=== PATIENT | male | born 1955 | race Caucasian/White ===

== ENCOUNTER 2021-01-26 13:11 | Outpatient (REF) | payer BC, SELFPAY ==
--- NOTE | ~2021-01-26 | CT_ITS ---
EXAMINATION: CT CHEST SCREENING CLINICAL INFORMATION: Smoker. 50 years smoking. COMPARISON: None. TECHNIQUE: Multidetector volumetric CT imaging of the chest is performed without contrast using low dose technique. Additional 2D coronal and sagittal reformatted images and axial 3D maximum intensity projection (MIP) images are generated on the CT workstation. This CT examination was performed using dose optimization techniques as appropriate, variously including the following: *Automated exposure control *Adjustment of mA and/or kV according to patient size (this includes techniques or standardized protocols for targeted exams where dose is matched to indication/reason for exam; i.e. extremities or head) *Use of iterative reconstruction technique DLP: 65 mGy-cm FINDINGS: LUNGS: The lungs are well expanded and clear of acute process. There is no pulmonary nodule, mass or ground-glass density. MEDIASTINUM: The thyroid lobes are symmetrical and normal. Central trachea and the bronchi widely patent. There are small shotty mediastinal lymph nodes with a pretracheal lymph node measuring 8 mm in short axis. There is trace coronary artery calcifications. No pericardial effusion seen. PLEURA: There is no pleural effusion. No pleural mass or thickening. AXILLA: No abnormal axillary lymph nodes seen. The chest wall is unremarkable. UPPER ABDOMEN: Unremarkable. OSSEOUS STRUCTURES: No lytic or sclerotic process seen. There is moderate ventral spondylosis mid dorsal spine. CT/CT lung screening IMPRESSION: Unremarkable CT chest exam. ASSESSMENT: Lung-RADS category 1: Negative RECOMMENDATION: Low-dose annual CT chest.
== END 2021-01-26 13:12 | disposition home or self-care (01) ==
LOC: HO.CT 13:11
PROVIDERS: PCP Internal Medicine Geriatric Medicine; Visit Provider Physician Assistant Medical
DX: F17.210 Nicotine dependence, cigarettes, uncomplicated (principal)
CPT/HCPCS: 71271; G0296

== ENCOUNTER 2022-10-10 11:03 | Outpatient (REF) | payer MEDICARE, SELFPAY ==
--- NOTE | ~2022-10-10 | CT_ITS ---
EXAMINATION: LUNG CANCER SCREENING CT CHEST WITHOUT CONTRAST CLINICAL INFORMATION: Current smoker with 50 pack year history COMPARISON: 01/26/2021 TECHNIQUE: Multidetector volumetric CT imaging of the chest was obtained noncontrast using low dose screening CT technique. Axial thin section 0.625 mm reformations in soft tissue and lung windows were obtained. Sagittal and coronal reformations were obtained. Axial MIP images were also created and reviewed. This CT examination was performed using dose optimization techniques as appropriate, variously including the following: *Automated exposure control *Adjustment of mA and/or kV according to patient size (this includes techniques or standardized protocols for targeted exams where dose is matched to indication/reason for exam; i.e. extremities or head) *Use of iterative reconstruction technique TOTAL EXAM DLP: 62.55 mGy-cm FINDINGS: PULMONARY NODULES (see ruelas images): No suspicious pulmonary nodules. LUNGS / PLEURA: Minimal emphysema. Diffuse mild bronchial wall thickening and bronchiectasis. There are a few scattered endobronchial secretions in the mainstem bronchi. There are vague patchy groundglass opacities in the right middle lobe, medial basal segment of the right lower lobe and to a lesser extent in the perihilar right upper lobe. No pleural effusion or pneumothorax. MEDIASTINUM / GAYLE: Heart normal in size without pericardial effusion. Great vessels normal caliber. No lymphadenopathy. Coronary calcifications present. Imaged thyroid gland unremarkable. CHEST WALL / AXILLA: Unremarkable. UPPER ABDOMEN: Included portions grossly unremarkable allowing for limitations in technique. OSSEOUS STRUCTURES: No acute or suspicious osseous abnormalities. CT/CT lung screening IMPRESSION: * No evidence of pulmonary malignancy. * Minimal emphysema and chronic airways disease. * Minimal patchy groundglass opacities in the right lung as described likely reflecting a mild bronchiolitis, infectious versus inflammatory. ASSESSMENT: Lung RADS category: 2S. Benign appearance or behavior. Nodules with a very low likelihood of becoming a clinically active cancer due to size or lack of growth. Continue annual screening with low-dose CT in 12 months. Probability of malignancy less than 1%. Clinically significant or potentially clinically significant findings (non lung cancer). Management as appropriate to the specific finding. RECOMMENDATION: Follow up low dose CT chest in 1 year.
== END 2022-10-10 11:04 | disposition home or self-care (01) ==
LOC: HO.CT 11:03
PROVIDERS: PCP Internal Medicine Geriatric Medicine; Visit Provider Physician Assistant Medical
DX: Z12.2 Encounter for screening for malignant neoplasm of respiratory organs (principal); F17.210 Nicotine dependence, cigarettes, uncomplicated
CPT/HCPCS: 71271

== ENCOUNTER 2022-12-04 11:38 | Outpatient (REF) | payer MEDICARE, SELFPAY ==
[2022-12-04 14:34] LABS: Prostate Specific Antigen 0.25 ng/mL (<0.05-4.0)
== END 2022-12-04 11:39 | disposition home or self-care (01) ==
LOC: HO.HHCL 11:38
PROVIDERS: Visit Provider Internal Medicine Geriatric Medicine
DX: Z12.5 Encounter for screening for malignant neoplasm of prostate (principal)
CPT/HCPCS: 36415; 84153

== ENCOUNTER 2022-12-13 13:54 | Outpatient (REF) | payer MEDICARE, SELFPAY ==
--- NOTE | ~2022-12-13 | XR_ITS ---
Indication: Chronic pain EXAMINATION: Bilateral hips. Comparison is made to previous exam dated 10/08/2018. 2 views of the right hip demonstrate once again sclerotic change involving the femoral head. Overall appearances similar to previous. The femoral head contour remains smooth. Vascular calcifications are noted. The right SI joint is patent. Some loss of joint space central and inferior is noted. 2 views of the left hip again demonstrate areas of patchy sclerosis involving the femoral head. The femoral head contour however remains smooth. Once again vascular calcifications are seen. XR/XR hip RT min 2V IMPRESSION: Once again mixed sclerotic lucent regions in the femoral heads bilaterally raises the question of avascular necrosis. The femoral head contours however remain smooth. Findings can be further assessed with MRI
--- NOTE | ~2022-12-13 | XR_ITS ---
Indication: Chronic pain EXAMINATION: Bilateral hips. Comparison is made to previous exam dated 10/08/2018. 2 views of the right hip demonstrate once again sclerotic change involving the femoral head. Overall appearances similar to previous. The femoral head contour remains smooth. Vascular calcifications are noted. The right SI joint is patent. Some loss of joint space central and inferior is noted. 2 views of the left hip again demonstrate areas of patchy sclerosis involving the femoral head. The femoral head contour however remains smooth. Once again vascular calcifications are seen. XR/XR hip LT min 2V IMPRESSION: Once again mixed sclerotic lucent regions in the femoral heads bilaterally raises the question of avascular necrosis. The femoral head contours however remain smooth. Findings can be further assessed with MRI
== END 2022-12-13 13:55 | disposition home or self-care (01) ==
LOC: HO.HHCX 13:54
PROVIDERS: Visit Provider Internal Medicine Geriatric Medicine
DX: M25.551 Pain in right hip (principal); M25.552 Pain in left hip; G89.29 Other chronic pain
CPT/HCPCS: 73502

== ENCOUNTER 2023-06-12 10:50 | Outpatient (REF) | payer MEDICARE, SELFPAY ==
[2023-06-12 13:14] LABS: MANUAL DIFF FLAG NO
[2023-06-12 13:18] LABS: Basophils Absolute Auto 0.1 X10*3/uL (0.0-0.2); Basophils Percent Auto 0.8 % (0-2); Eosinophils Absolute Auto 0.2 X10*3/uL (0.0-0.4); Eosinophils Percent Auto 1.9 % (0-4); Hematocrit 46.1 % (42.0-52.0); Hemoglobin 15.3 g/dl (14.0-18.0); Imm Gran Abs Auto 0.03 X10*3/uL (0.00-0.03); Imm Gran Pct Auto 0.3 % (0.0-0.4); Lymphocytes Absolute Auto 4.6 X10*3/uL (1.2-4.9); Lymphocytes Percent Auto 43.9 % (20-40); Mean Corpuscular HGB Conc 33.2 g/dl (31.0-36.0); Mean Corpuscular Hemoglobin 30.2 pg (27.0-33.0); Mean Corpuscular Volume 90.9 fL (80.0-98.0); Mean Platelet Volume 9.2 fL (9.4-12.4); Monocytes Absolute Auto 0.6 X10*3/uL (0.1-1.2); Neutrophils Absolute Auto 4.9 x10*3/uL (2.0-8.3); Neutrophils Percent Auto 47.1 % (45-73); Platelet Count 315 X10*3/uL (160-400); Red Blood Count 5.07 X10*6/uL (4.60-5.80); Red Cell Distribution Width 14.6 % (11.0-16.0); White Blood Count 10.4 X10*3/uL (4.8-10.8)
[2023-06-12 13:42] LABS: Alanine Aminotransferase 21 U/L (0-40); Albumin Level 4.4 g/dL (3.5-5.0); Alkaline Phosphatase 97 U/L (39-117); Anion Gap 13 (12-20); Aspartate Amino Transferase 21 U/L (5-37); Bilirubin Total 0.4 mg/dL (0.0-1.0); Blood Urea Nitrogen 11 mg/dL (9-16); Calcium 9.3 mg/dL (8.4-10.2); Carbon Dioxide 24 mmol/L (22-29); Chloride 105 mmol/L (96-108); Cholesterol 183 mg/dL (<200); Estimated Glomerular Filt Rate > 60; Glucose Random 64 mg/dL (60-115); HDL Cholesterol 35 mg/dL (>40); LDL Cholesterol Calculated 76 mg/dL (<100); Sodium 138 mmol/L (135-145); Total Protein 7.2 g/dL (6.5-8.0); Triglycerides 361 mg/dL (<150)
== END 2023-06-12 10:51 | disposition home or self-care (01) ==
LOC: HO.HHCL 10:50
PROVIDERS: Visit Provider Internal Medicine Geriatric Medicine
DX: I10 Essential (primary) hypertension (principal); E78.00 Pure hypercholesterolemia, unspecified; M25.511 Pain in right shoulder; G89.29 Other chronic pain; Z72.0 Tobacco use; Z98.890 Other specified postprocedural states
CPT/HCPCS: 36415; 80053; 80061; 85025

== ENCOUNTER 2023-06-25 09:53 | Outpatient (REF) | payer MEDICARE, SELFPAY ==
--- NOTE | ~2023-06-25 | XR_ITS ---
EXAMINATION: XR SHOULDER, RIGHT CLINICAL INFORMATION: Right shoulder pain COMPARISON: None available. TECHNIQUE: AP external rotation and axillary views of the right shoulder. FINDINGS: There is prominent keel spur extending intraconal and can cause impingement of right shoulder. There are mild changes of osteoarthritis at the greater tuberosity. Acromioclavicular joint and glenohumeral joints are preserved. Soft tissues unremarkable. XR/XR shoulder RT min 2V IMPRESSION: Prominent keel spur of the acromion
== END 2023-06-25 09:54 | disposition home or self-care (01) ==
LOC: HO.HOSX 09:53
PROVIDERS: Visit Provider Orthopaedic Surgery
DX: M25.511 Pain in right shoulder (principal); R53.1 Weakness; Z79.899 Other long term (current) drug therapy
CPT/HCPCS: 20610; 73030; 99202; J1020

== ENCOUNTER 2023-06-25 10:56 | Outpatient (AMB) | payer MEDICARE, SELFPAY ==
--- NOTE | 2023-06-25 11:11 | A.OFFVIS_ITS ---
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 The patient describes his pain as sharp in nature. He did undergo bilateral shoulder rotator cuff repair surgeries several years ago. Those surgeries were performed by another orthopedic surgeon. Patient states that he re-injured his right shoulder while lifting approximately 1 year ago. Since that time his pain and weakness have gotten worse. Has done physical therapy which aggravated his pain. He has also tried Tylenol and anti- inflammatory medicines which gave him minimal relief. The patient reports difficulty lifting his right hand above shoulder height. Allergies No Known Allergies Allergy (Verified 06/25/23 11:25) Medication List - Last Reconciled 06/25/23 by Sebastián Escobedo MD albuterol sulfate 90 mcg/actuation 2 puffs inhalation Q6H amlodipine 2.5 mg PO DAILY atorvastatin 40 mg PO DAILY benzonatate mg PO blood pressure test kit-large As directed ciprofloxacin HCl 500 mg PO BID lisinopril 40 mg PO DAILY naloxone 4 mg/actuation intranasal DIRECTED omeprazole 40 mg PO DAILY oxycodone 15 mg PO QID PRN pregabalin 150 mg PO TID sildenafil (Viagra) 50 mg PO DAILY PRN PFSH Medical History Hyperlipidemia GERD (gastroesophageal reflux disease) Hypertension Chronic back pain Personal history of nicotine dependence Surgical History History of rotator cuff surgery History of lumbar surgery Social History Alcohol intake: current Alcohol intake frequency: a few times a month Patient Tobacco Use Status: Current everyday Tobacco user Tobacco use type: Cigarette Cigarette Packs Per Day: 15 Years Smoked: 50 (onset 15, 3/4ppd x50yrs 35PYH) Physical Exam Vital Signs: BMI result Body Mass Index 29.0 Const Other: Well-nourished well-developed very friendly male awake alert and oriented x3 in no acute distress Extrem Other: Bilateral upper extremity examination shows good capillary refill, no skin lesions noted, normal sensation light touch Right shoulder examination shows decreased active and passive range of motion when compared to his left shoulder, 4+ out of 5 strength with supraspinatus positive impingement signs, tenderness over his acromioclavicular joint, no instability Office Procedures Joint Injection/Drain Joint Injection/Drain Primary Site: right shoulder Prep: site was prepped using aseptic technique Injected: 40 mg of, DepoMedrol and 1% plain lidocaine Procedure: The patient tolerated the procedure well Coding - Large joint Procedure code (CPT) selection complete Results Reviewed Results Reviewed: X-rays of the patient's right shoulder show severe acromioclavicular joint narrowing, a type 3 acromion, no acute bony abnormalities Assessment & Plan Assessment & Plan (1) Right shoulder pain: Code(s): M25.511 - Pain in right shoulder Plan Mr. Tolbert presents with right shoulder pain and weakness due to impingement syndrome, acromioclavicular joint arthritis and possible rotator cuff tearing. I had a lengthy discussion with the patient regarding the treatment options. The risks and benefits of a right shoulder cortisone injection were discussed at length with the patient. The patient wished to proceed with the injection. He tolerated the injection well. I will send the patient for an MRI of his right shoulder to further evaluate the status of his rotator cuff tendons. If he does have a full-thickness tear I will recommend surgical repair to optimize is future functional level. I will see the patient back once the MRI is completed to discuss the findings and treatment options. Feel free to call me at any time should questions regarding his orthopedic management arise. Thank you very much for asking me to see this very friendly gentleman. I spent 22 minutes in reviewing the patient's records and imaging studies, seeing the patient and documenting in the medical record. Orders: Orders AMB Joint Injection/Aspiration Today M25.511 - Pain in right shoulder XR shoulder RT min 2V Today M25.511 - Pain in right shoulder MR shoulder RT wo con Today M25.511 - Pain in right shoulder Coding Level of Care Code New Pt Level 2 (82195) Diagnoses Right shoulder pain M25.511 CPT Codes Coding - 08523 Large joint: 04862 - Large joint ([id number])
[2023-06-25 11:22] VITALS: BMI 29.0
== END 2023-06-25 11:55 | disposition home or self-care (01) ==
PROVIDERS: PCP Internal Medicine Geriatric Medicine; Visit Provider Orthopaedic Surgery
DX: M25.511 Pain in right shoulder (principal)
CPT/HCPCS: 20610; 99202

== ENCOUNTER 2024-03-03 11:04 | Outpatient (REF) | payer MEDICARE, SELFPAY ==
--- NOTE | ~2024-03-03 | CT_ITS ---
EXAMINATION: CT LOW-DOSE SCREENING CHEST WITHOUT CONTRAST CLINICAL INFORMATION: Nicotine dependence, cigarettes, uncomplicated. The patient is a current smoker with a 53 pack-year history of smoking. COMPARISON: Multiple prior CT scans of the chest, the most recent of which is dated 10/10/2022 and the most remote of which is dated 08/25/2007. TECHNIQUE: Multidetector volumetric CT imaging of the chest is performed on a Siemens SOMATOM Definition scanner without contrast using low dose technique. Additional 2D coronal and sagittal reformatted images and axial 3D maximum intensity projection (MIP) images are generated on the CT workstation. This CT examination was performed using dose optimization techniques as appropriate, variously including the following: *Automated exposure control *Adjustment of mA and/or kV according to patient size (this includes techniques or standardized protocols for targeted exams where dose is matched to indication/reason for exam; i.e. extremities or head) *Use of iterative reconstruction technique TOTAL EXAM DLP: 61 mGy-cm. CTDIvol: 1.72 mGy. FINDINGS: PULMONARY NODULES: No suspicious pulmonary nodules. LUNGS: Lungs bilaterally symmetrically expanded. There is minimal emphysema and bronchial thickening without bronchiectasis. No effusion or pneumothorax. Central airways patent. MEDIASTINUM: No mediastinal, hilar or axillary adenopathy or free fluid collection. CORONARY ARTERY CALCIFICATION: Present. THYROID GLAND: Unremarkable to the extent seen. CARDIOVASCULAR STRUCTURES: Aortic and heart size normal. No pericardial effusion. CHEST WALL/AXILLA: Unremarkable. UPPER ABDOMEN: Included portions of the solid organs in the upper abdomen unremarkable on noncontrast imaging aside from the presence of hepatic steatosis, new compared to prior. OSSEOUS STRUCTURES: No suspicious focal findings. CT/CT lung screening IMPRESSION: 1. No evidence of pulmonary malignancy. 2. Incidental note made of minimal emphysema and hepatic steatosis. ASSESSMENT: 1. Lung-RADS Category 1: Negative. There are no nodules or there are definitely benign nodules. N/A 2. Lung-RADS Category S: Negative. There are no clinically significant or potentially clinically significant findings not related to the lungs requiring urgent additional evaluation. RECOMMENDATION: Continued routine annual low-dose CT lung screening in 1 year is recommended. An order for CT CHEST LOW DOSE CANCER SCREENING ([id number]) can be placed. Electronically signed by: Beau Ulrich MD 04/21/2024 01:27 PM [facility]
== END 2024-03-03 11:05 | disposition home or self-care (01) ==
LOC: HO.CT 11:04
PROVIDERS: PCP Internal Medicine Geriatric Medicine; Visit Provider Physician Assistant Medical
DX: Z12.2 Encounter for screening for malignant neoplasm of respiratory organs (principal); F17.210 Nicotine dependence, cigarettes, uncomplicated
CPT/HCPCS: 71271

== ENCOUNTER 2024-11-15 11:43 | Outpatient (REF) | payer MEDICARE, SELFPAY ==
--- OUTSIDE RECORDS SUMMARY | 2024-11-15 12:36 | XMS_ITS | Clinical Summary ---
Author Organization [facility] Address [address] [place] [address] Care Team Providers Care Auto Driver Name Role Phone Name, Chet VALDEZ Primary Care Provider [phone] Social History Tobacco Use Types Packs/Day Years Used Date Smoking Tobacco: Never Assessed Sex and Gender Information Value Date Recorded Sex Assigned at Not on file Gender Identity Not on file Sexual Orientation Not on file Plan of Treatment Health Maintenance Due Date Last Done Comments Hepatitis C Screening 1955 COVID-19 Vaccine (#1) 03/17/1957 Depression Screening 1968 Preventative Health Evaluation 1974 DTap / Tdap / Td (1 - Tdap) 09/15/1975 Colon Cancer Screening (Colonoscopy) 2001 Shingrix-Zoster Vaccine (1 of 2) 2006 Fall Risk Assessment 2021 Pneumococcal Vaccine (1 of 1 - PCV) 2021 Influenza Vaccine (#1) 2025 4, 03/31/2012, 02/19/2011, Additional history exists RSV Adult > 60+ Yrs or (1 - 1-dose 75+ series) 09/15/2031 Hepatitis B Vaccines Aged Out No long er eligible based on patient's age to complete this topic RSV Ped < 20 months Aged Out No longe r eligible based on patient's age to complete this topic Care Teams Auto Driver Relationship Specialty Start Date End Date Name, MD Chet [address] [facility] [address] [place] [id number] PCP - General Internal Medicine 07/30/18
--- OUTSIDE RECORDS SUMMARY | 2024-11-15 12:36 | XMS_ITS | Encounter Summary ---
Author Organization [facility] Address [address] [place] [address] [address] [place] [address] Care Team Providers Care Splicer Machine Operator Name Role Phone Name, Chet VALDEZ Primary Care Provider [phone] Reason for Visit * Reason Onset Date Comments Nurse Triage 11/10/2024 Encounter Details Date Type Department Care Team (Late st Contact Info) Description 11/10/2024 Telephone [facility] [address], [place] [phone] Name, MD Chet [address] [place], [place] [phone] Nurse Triage Social History Tobacco Use Types Packs/Day Years Used Date Smoking Tobacco: Every Day Cigarettes 1 53.5 Started: 05/12/1971 Passive Smoke Exposure: Current Smokeless Tobacco: Never Alcohol Use Standard Drinks/Week Comments Yes 2 (1 standard drink = 0.6 oz pur e alcohol) Drinks 'rarely' Depression Answer Date Recorded Patient Health Questionnaire-9 Score 0 09/19/2023 Patient Health Questionnaire-9 Score 0 09/19/2023 Last PHQ-9: Questionnaire Data Not on file 0 09/19/2023 Housing Stability Answer Date Recorded What is your housing situation today? I have housing today, but I am worried about losing housing in the future 11/02/[address] you li ve. Do you have problems with any of the following? Pests such as bugs, ants, or mice;Inadequate heat 11/02/2024 Food Insecurity Answer Date Recorded Within the past 12 months, y ou worried that your food would run out before you got money to buy more: Never True 11/02/2024 Within the past 12 months,th e food you bought just didn't last and you didn't have enough money to get more: Never True Transportation Answer Date Recorded In the past 12 months, has l ack of transportation kept you from medical appts, meetings, work or from getting things needed for daily living? Yes, it has kept me from medical appointments or getting medications. 11/02/2024 Utilities Answer Date Recorded In the past 12 months, has t he electric, gas, oil or water company threatened to shut off services in your home? Yes 11/02/2024 Depression Answer Date Recorded Patient Health Questionnaire-2 Score 0 09/19/2023 Internet Access Answer Date Recorded Internet Access Q1 Yes 11/02/2024 Internet Access Q2 Not on file 11/02/2024 Sex and Gender Information Value Date Recorded Sex Assigned at Male 03/11/2022 10:34 AM EDT Legal Sex Male 10:34 AM EDT Gender Identity Male 03/11/2022 10:34 AM EDT Sexual Orientation Straight 03/11/2022 10 :34 AM EDT documented as of this encounter Miscellaneous Notes * Telephone Encounter - Trina Albrecht RN - 11/10/2024 10:07 AM EDT Triage call Pt reports coughing since 11/08/24. Pt last seen in [facility] 11/02/24. Pt is concerned about exposure to Covid but, is not aware of any actual exposure. Pt reports cough is dry, has some coughing spells . Neg for fever, or any increase in usual SOB with exertion. Pt is a tobacco smoker. Pt isadvised to increase liquids 6-8 glasses daily , chicken broth , decaf tea, Use 2 tsp honey for cough when needed. Hot steamy shower air for coughing alot. Humidifier if needed or available. Pt is advised to obtain OTC Covid test kit available at pharmacy and test at home in the next day or so. Pt agrees with home care advised. Pt is advised if spouse or Pt have + Covid test in the next few days ca ll back and will triage from there. Pt agrees with disposition. Protocol Used: Cough (Adult) Protocol-Based Disposition: Home Care Positive Triage Question: * Cough with no complications * All higher-acuity triage questions were negative Care Advice Discussed: * Reassurance and Education - Cough * Cough Medicines * Coughing Spells * Prevent Dehydration * Humidifier * Fever Medicines * Reasons To Call Back - Difficulty breathing - Cough lasts more than 3 weeks - Fever lasts more than 3 days - You become worse * Telephone Encounter - Kaushaljon Lolly - 11/10/2024 9:49 AM EDT Symptom: COVID-19 Exposure (No Symptoms) Outcome: Schedule a same-day appointment or talk to a nurse or provider today Reason: This is the only possible outcome for this symptom The caller accepted this outcome. Contact pt at [phone] documented in this encounter Plan of Treatment Upcoming Encounters Date Type Department Care Team (Late st Contact Info) Description 01/17/2025 11:30 AM EDT Clinical Support [facility] [address] [place] [id number] Jahaira Smalls, NEGAR documented as of this encounter Visit Diagnoses Not on filedocumented in this encounter Additional Health Concerns Assessment Noted Time PHQ-9 Depression Total Score: 0 09/19/19 24 11:32 AM EDT documented as of this encounter Care Teams Splicer Machine Operator Relationship Specialty Start Date End Date Name, MD Chet [address] [place] [address] PCP - General Family Medicine 02/09/18 documented as of this encounter
--- OUTSIDE RECORDS SUMMARY | 2024-11-15 12:36 | XMS_ITS | Clinical Summary ---
Author Organization [facility] lin Address [address] [place] [address] Care Team Providers Care Clinical Assoc Name Role Phone Pcp, Ruma Primary Care Provider [phone] Allergies Active Allergy Reactions Criticality Noted Date Comments Niacin 08/07/2022 Medications aspirin (YUE CHEWABLE ASPIRIN) 81 MG chewable tablet Take 1 tablet (81 mg total) by mouth 5 Active amLODIPine (NORVASC) 2.5 MG tablet Take 1 tablet (2.5 mg total) by mouth 5 Active albuterol sulfate (ProAir RespiClick) 90 mcg/actuation aepb Inhale 6 Active albuterol (VENTOLIN HFA) 90 mcg/actuation inhaler Inhale 2 puffs every 4 (four) hours 1 Active ferrous sulfate (FEOSOL) 325 (65 FE) MG tablet 65 mg 4 Active fenofibrate micronized (LOFIBRA) 200 MG capsule Take 1 capsule (200 mg total) by mouth 8 Active docusate sodium (COLACE) 100 MG capsule TAKE 1 CAPSULE TWICE DAILY., 11/01/14 5:00:00 5 Active cyanocobalamin (VITAMIN B-12) 1000 MCG tablet TAKE 1 TABLET DAILY DIRECTED., 09/27/14 5:00:00 5 Active buPROPion HCL, smoking deter, (ZYBAN) 150 mg Tb12 Take 150 mg by mouth 2 Active atorvastatin (LIPITOR) 40 MG tablet TAKE 1 TABLET(40 MG) BY MOUTH IN THE MORNING 5 Active blood pressure test kit-large (Red Loop Media BP Monitor) kit Use once a day 3 Active fluticasone propionate (Flonase Allergy Relief) 50 mcg/actuation nasal spray Instill into each nostril 6 Active lisinopriL (ZESTRIL) 40 MG tablet Take 1 tablet (40 mg total) by mouth 5 Active omega-3 acid ethyl esters (LOVAZA) 1 gram capsule Take 1 capsule (1 g total) by mouth 4 Active omeprazole (PriLOSEC) 40 MG capsule TAKE ONE CAPSULE BY MOUTH ONCE DAILY BEFORE A MEAL 5 Active oxyCODONE (ROXICODONE) 15 MG immediate release tablet Take 1 tablet (15 mg total) by mouth every 6 (six) hours Max Daily Amount: 60 mg 5 12/03/19 25 Active predniSONE (DELTASONE) 20 MG tablet Take by mouth 5 11/16/19 25 Active pregabalin (LYRICA) 150 MG capsule Take 1 capsule (150 mg total) by mouth 5 Active Viagra 50 mg tablet TAKE 1 TABLET BY MOUTH 1 HOUR BEFORE SEXUAL RELATIONS ONCE DAILY NEEDED. 5 Active tadalafiL (Cialis) 20 MG tablet Take 1 tablet (20 mg total) by mouth 6 Active varenicline tartrate (CHANTIX ISABELL) 0.5 mg (11)- 1 mg (42) tablet Take by mouth 4 Active benzonatate (TESSALON) 100 MG capsule Swallow whole one (100mg) capsule by mouth 3 times a day as needed.Do not break, chew, dissolve, cut or crush. 30 capsule 5 11/18/19 25 Active azithromycin (ZITHROMAX) 250 MG tablet Take 2 tablets on day 1, Take 1 tablet on Day 2-5 6 tablet 5 11/16/19 25 Active Encounters Date Type Department Care Team Description 11/10/2024 12:20 PM EDT Office Visit [facility] [place] [address] Nela Lozano NP COPD with acute exacerbation (CMS/HCC and HHS/HCC) (Primary Dx); Chronic cough; Tobacco use from Last 3 Months Social History Tobacco Use Types Packs/Day Years Used Date Smoking Tobacco: Every Day Cigarettes Passive Smoke Exposure: Current Tobacco Cessation:Ready to Q uit: No; Counseling Given: Yes PHQ-2 Answer Date Recorded PHQ-2 Score Patient declined 11/10/2024 Sex and Gender Information Value Date Recorded Sex Assigned at Not on file Legal Sex Male 11:37 AM EDT Gender Identity Not on file Sexual Orientation Not on file Last Filed Vital Signs Vital Sign Reading Time Taken Comments Blood Pressure 173/91 11/10/2024 11:50 AM EDT Pulse 66 11/10/2024 11:48 AM EDT Temperature 37.1 C (98.8 F) 11/10/2024 11:48 AM EDT Respiratory Rate 20 11/10/2024 11:48 AM EDT Oxygen Saturation 94% 11/10/2024 11:48 AM EDT Inhaled Oxygen Concentration - - Weight - - Height - - Body Mass Index - - Plan of Treatment Health Maintenance Due Date Last Done Comments Colorectal Cancer: COLONOSCO PY Screening every 10 yrs (or Modifier) 1956 Depression: Screening Annual ly using PHQ-2/9 in Adults 18 yrs or above (or HM Modifier)([facility]) 1974 Hepatitis C Virus Infection in Adolescents and Adults: Screening (or Modifier) ([facility]) 1974 SDID Screening Reminder: Ceci ually for all adults ([facility]) 1974 Colorectal Cancer Screening 45 -75 Yrs (or HM Modifier) 2001 Colorectal Cancer: FLEXIBLE SIGMOIDOSCOPY Screening every 5 yrs 2001 Colorectal Cancer: Fecal Immunochemical Test (FIT) Annually [facility] 2001 Colorectal Cancer: High-sens itivity gFOBT Screening Annually [facility] 2001 Colorectal Cancer: Stool Col oguard Screening every 3 yrs 2001 Colorectal Cancer:CT Colonog candelaria Screening every 5 yrs 2001 Abdominal Aortic Aneurysm Screening: Men Aged 65 to 75 Years Who Have Smoked (or Modifier) ([facility]) 2021 COVID-19 Vaccine Screening: Initial Series and Booster Status ([facility]) ( season) 2024 08/23/2020, 07/21/2020 Flu Vaccination: Ages 65+: Y early High Dose Recommended (or Modifier)([facility]) 12/10/2024 02/24/2023, 12/29/2019, 02/16/2019, Additional history exists Lung Cancer: Screening Ceciua lly in adults aged 50 to 80 years (or HM Modifiers)([facility]) 03/03/2025 03/03/2024 Tobacco Smoking Cessation: i n Adults excluding Women: Behavioral and Pharmacotherapy Interventions ([facility]) 11/10/2025 11/10/2024, 11/10/2024 DTaP/Tdap/Td Vaccines ([facility]) (2 - Td or Tdap) 03/19/2029 03/19/2019, 05/12/2009 Zoster/Shingles Vaccine Seri es Screening: Adults aged 18+ yrs (or HM Modifiers)([facility]) Completed 04/18/2020, 04/17/2020, 01/28/2020 RSV Vaccines Completed 03/05/2023 Pneumococcal Vaccination Scr eening: Patients 50+ yrs of age ([facility]) Completed 05/01/2023, , 01/07/2017 Medical Devices Not on file Procedures Procedure Name Priority Date/Time Associated Diagnosis Comments LUMIRADX SARS-COV-2 RAPID RESULT ANTIGEN TEST Routine 11/10/2024 11:56 AM EDT COPD with acute exacerbation ([facility]) Chronic cough from Last 3 Months Results * LumiraDX SARS-COV-2 Rapid Result Antigen Test (11/10/2024 11:56 AM EDT) LumiraDX SARS-COV-2 Rapid Result Antigen Test Negative Negative, Invalid, Not Tested, ERRONEOUS RUIZ [id number] INTERNAL CONTROLS VALID Yes--Test working appropriately RUIZ [id number] Expiration Date 03/02/2025 RUIZ [id number] Lot Number [id number] RUIZ [id number] LUMIRA TEST BRAND Lumiradx Sars-Cov-2 AG Test RUIZ [id number] Other 11/10/2024 11:5 6 AM EDT us Nela Lozano NP POINT OF CARE TEST ORDERABLES Final Result RUIZ [id number] [address] [place] [address], [place] from Last 3 [place] [address] [facility] Care Teams Clinical Assoc Relationship Specialty Start Date End Date Pcp, No PCP - General Family Medicine 11/10/24
--- OUTSIDE RECORDS SUMMARY | 2024-11-15 12:36 | XMS_ITS | Clinical Summary ---
Author Organization [facility] ity Address [address] [place] [address] Care Team Providers Care Sleeve Sewer Name Role Phone Name, Chet VALDEZ Primary Care Provider [phone] Social History Tobacco Use Types Packs/Day Years Used Date Smoking Tobacco: Never Assessed Sex and Gender Information Value Date Recorded Sex Assigned at Not on file Legal Sex Male 2:40 AM EST Gender Identity Not on file Sexual Orientation Not on file Plan of Treatment Health Maintenance Due Date Last Done Comments DTaP,Tdap,and Td Vaccines (1 - Tdap) 09/15/1975 Pneumococcal Vaccine: 50+ Years (1 of 1 - PCV) 2006 Zoster Vaccines (1 of 2) 2006 COVID-19 Vaccine ( - 2023-2 5 season) 2024 Influenza Vaccine (#1) 2025 2, 02/19/2011, 02/27/2010 RSV Immunization Adult Patients (1 - 1-dose 75+ series) 09/15/2031 HIB Vaccines Aged Out No longer eligi ble based on patient's age to complete this topic HPV Vaccines Aged Out No longer eligi ble based on patient's age to complete this topic Hepatitis A Vaccines Aged Out No long er eligible based on patient's age to complete this topic Hepatitis B Vaccines Aged Out No long er eligible based on patient's age to complete this topic IPV Vaccines Aged Out No longer eligi ble based on patient's age to complete this topic MMR Vaccines Aged Out No longer eligi ble based on patient's age to complete this topic Meningococcal ACWY Vaccine Aged Out N o longer eligible based on patient's age to complete this topic Meningococcal B Vaccine Aged Out No l onger eligible based on patient's age to complete this topic RSV Immunization Patients Under 20 months Aged Out No longer eligible b ased on patient's age to complete this topic Varicella Vaccines Aged Out No longer eligible based on patient's age to complete this topic Care Teams Sleeve Sewer Relationship Specialty Start Date End Date Name, MD Chet [address] [place] [address] PCP - General 02/27/10
[2024-11-15 15:18] LABS: Alanine Aminotransferase 39 U/L (0-40); Albumin Level 4.5 g/dL (3.5-5.0); Alkaline Phosphatase 91 U/L (39-117); Anion Gap 13 (12-20); Aspartate Amino Transferase 29 U/L (5-37); Blood Urea Nitrogen 15 mg/dL (9-16); Calcium 9.0 mg/dL (8.4-10.2); Carbon Dioxide 21 mmol/L (22-29); Chloride 107 mmol/L (96-108); Cholesterol 161 mg/dL (<200); Estimated Glomerular Filt Rate > 60; HDL Cholesterol 38 mg/dL (>40); Potassium 4.2 mmol/L (3.3-5.1); Sodium 137 mmol/L (135-145); Total Protein 6.9 g/dL (6.5-8.0); Triglycerides 288 mg/dL (<150)
== END 2024-11-15 11:44 | disposition home or self-care (01) ==
LOC: HO.HHCL 11:43
PROVIDERS: PCP Internal Medicine Geriatric Medicine; Visit Provider Internal Medicine Geriatric Medicine
DX: I10 Essential (primary) hypertension (principal)
CPT/HCPCS: 36415; 80053; 80061

== ENCOUNTER 2025-01-26 18:23 | Outpatient (REF) | payer MEDICARE, SELFPAY ==
--- OUTSIDE RECORDS SUMMARY | 2025-01-26 14:00 | XMS_ITS | Encounter Summary ---
Author Organization [employer] Address [address] [place] [address] Care Team Providers Care Sealing And Canceling Machine Operator Name Role Phone Name, Chet VALDEZ Primary Care Provider [phone] Reason for Visit * Reason Comments INJECTION PRESS OPERATOR RV Encounter Details Date Type Department Care Team (Latest Contact Info) Description 01/26/2025 2:00 PM EDT Clinical Support [address] [address] Jahaira Smalls RN Long-term current use of opiate analgesic (Primary Dx) Social History Tobacco Use Types Packs/Day Years Used Date Smoking Tobacco: Every Day Cigarettes 1 53.7 Started: 05/12/1971 Passive Smoke Exposure: Current Smokeless [...] AM EDT documented as of this encounter Progress Notes * Jahaira Smalls RN - 01/26/2025 2:00 PM EDT SUBJECTIVE: Sedrick Tolbert is a 69 y.o. year old male who presents for INJECTION PRESS OPERATOR RV Preferred language for medical information: Swedish Sedrick Tolbert does report adherence to Oxycodone 15 mg, take 1 tablet every 6 hours PRN, last refilled 12/31/2024. The patient last took Oxycodone on: 01/26/2025 Medication is: 50% % effective at alleviating pain. Pt shared stress of caring for his mother who has dementia and lives in [place] with his son and girlfriend. OBJECTIVE: CYLINDER PRESS FEEDER checked: 01/26/2025 Pill count completed for Oxycodone , count today is 5 , anticipated count should be 5, this is as expected. Vital Signs Pain Score: 9 Pain Loc: Back Pain Education: Yes Additional pain site: right hip and right leg Last PCP visit: 11/02/2024 Controlled substance agreement signed: Controlled Substance Agreement 04/15/2024 INJECTION PRESS OPERATOR Tier: 2 Current Medications[1] Smoking status: Yes, 15 cigarettes daily ETOH use: Denies Illicit substances: Denies Marijuana use: Yes , smokes at bedtime. Marijuana card: Yes , Marijuana Acquired from: his girlfriend has a friend who gets it Lab Results Component Value Date POCTHC Positive 01/26/2025 POCCOCAINEUR Positive (A) 01/26/2025 POCOPIATEUR Negative 01/26/2025 DOAUR Negative 01/26/2025 POCAMPHETAMI Negative 01/26/2025 POCBENZODIUR Negative 01/26/2025 POCBARBSCRN Negative 01/26/2025 POCMETHADOUR Negative 01/26/2025 POCBUPSCRN Negative 01/26/2025 POCTCAUR Negative 01/26/2025 POCMDMAUR Negative 01/26/2025 POCOXYCODONE Positive 01/26/2025 POCPHENCYCUR Negative 01/26/2025 PROPOXUR Negative 01/26/2025 FENTANYLURIN Negative 01/26/2025 Reviewed UTOX results. Explained to pt I would send out urine for LESLY confirmation. Pt denies usingCOC. Educated patient on dangers of using marijuana from an unknown source and advised to only use marijuana from a dispensary. ASSESSMENT: Encounter Diagnosis Name Primary? Long-term current use of opiate analgesic Yes PLAN: Information on pain group given: Previously discussed Information on acupuncture given: Previously discussed Narcan education provided: Previously discussed Narcan prescription: active Will send Oxycodone refill request to PCP and update on UTOX results. Sedrick Tolbert will continue taking medication as prescribed and follow up at the next INJECTION PRESS OPERATOR visit or sooner if needed. Sedrick Tolbert has verbalized understanding of care plan. Future Appointments Date Time Provider Department Center 02/03/2025 10:30 AM Lily Schmidt PharmD MEDICINE [facility] 02/16/2025 10:30 AM Jahaira Smalls, RN MEDICINE [facility] Jahaira Smalls, RN [1] Current Outpatient Medications: [START ON 01/28/2025] oxyCODONE (Roxicodone) 15 MG immediate release tablet, Take 1 tablet (15 mg) by mouth every 6 (six) hours for 28 days. Do not start before January 28, 2025., Disp: 112 tablet, Rfl: 0 albuterol 108 (90 Base) MCG/ACT inhaler, Inhale 2 puffs every 4 (four) hours., Disp: , Rfl: amLODIPine (Norvasc) 2.5 MG tablet, TAKE 1 TABLET BY MOUTH EVERY DAY, Disp: 90 tablet, Rfl: 1 atorvastatin (Lipitor) 40 MG tablet, TAKE 1 TABLET(40 MG) BY MOUTH IN THE MORNING, Disp: 90 tablet,Rfl: 1 Blood Pressure kit, Use once a day, Disp: 1 kit, Rfl: 0 buPROPion (Zyban) 150 MG 12 hr tablet, Take 1 tablet (150 mg) by mouth in the morning and at bedtime. Do not crush, chew, or split., Disp: 60 tablet, Rfl: 2 lisinopril 40 MG tablet, TAKE 1 TABLET BY MOUTH EVERY DAY, Disp: 90 tablet, Rfl: 1 bsmdgqhh-afcsakybef-ooqdxbabj (Neosporin) 5-400-5000 ointment, Apply topically 2 times daily., Disp: 30 g, Rfl: 0 omega-3 acid ethyl esters (Lovaza) 1 g capsule, Take 1 capsule (1 g) by mouth 2 times daily., Disp:60 capsule, Rfl: 11 omeprazole (PriLOSEC) [address] capsule, TAKE ONE CAPSULE BY MOUTH DAILY BEFORE A MEAL, Disp: 90 capsule, Rfl: 1 pregabalin (Lyrica) 150 MG capsule, TAKE 1 CAPSULE BY MOUTH THREE TIMES DAILY, Disp: 90 capsule, Rfl: 0 sildenafil (Viagra) 50 MG tablet, TAKE 1 TABLET BY MOUTH EVERY DAY 1 HOUR BEFORE SEXUAL RELATIONS NEEDED, Disp: 10 tablet, Rfl: 2 Varenicline Tartrate, Starter, (Chantix Starting Month Pelon) 0.5 MG X 11 & 1 MG X 42 tablet therapy pack, Take 0.5 mg by mouth Once daily for 3 days, THEN 0.5 mg 2 times daily for 4 days, THEN 1 mg 2 times daily for 21 days., Disp: 53 each, Rfl: 0 documented in this encounter Plan of Treatment Upcoming Encounters Date Type Department Care Team (Late st Contact Info) Description 02/03/2025 10:30 AM EDT Medication Management [address] [address] Lily Schmidt, PankajD [address] [place] [id number] 02/16/2025 10:30 AM EDT Clinical Support [address] [place] [address] Jahaira Smalls, NEGAR Scheduled Orders Name Type Priority Associated Diagnoses Orde r Schedule Drug Monitoring, Cocaine Metabolite, Quantitative, Urine Lab Routine Long-term current use of opiate analgesic Ordered: 01/26/2025 documented as of this encounter Procedures Procedure Name Priority Date/Time Associated Diagnosis Comments POCT NAVJOT-14 URINE DRUG SCREEN Routine 01/26/2025 2:08 PM EDT Long-term current use of opiate analgesic documented in this encounter Results * (ABNORMAL) POCT NAVJOT-14 Urine Drug Screen (01/26/2025 2:08 PM EDT) THC Positive Negative Cocaine Screen, Urine Positive(A) Negative Opiate Screen, Urine Negative Negative Methamphetamine Screen Urine Negative Negative Amphetamine Screen, Urine Negative Negative Benzodiazepines Screen, Urine Negative Negative Barbiturate Screen, Urine Negative Negative Methadone Screen, Urine Negative Negative Buprenophine Screen, Urine Negative Negative TCA, Urine Negative Negative MDMA Urine Negative Negative ng/mL Oxycodone Screen, Urine Positive Negative Phencyclidine (PCP), Urine Negative Negative Propoxyphene, Urine Negative Negative Fentanyl, Urine Negative Negative Urine Urine specimen obtained by clean catch procedure / Unknown 01/26/2025 2:08 PM EDT Chet Escalera MD POINT OF CARE TEST ENTER/EDIT OR DERABLES Final Result documented in this encounter Visit Diagnoses Diagnosis Long-term current use of opiate analgesic- Primary Encounter for long-term (current) use of other medications documented in this encounter Additional Health Concerns Assessment Noted Time PHQ-9 Depression Total Score: 0 09/19/19 24 11:32 AM EDT documented as of this encounter Care Teams Sealing And Canceling Machine Operator Relationship Specialty Start Date End Date Name, MD Chet [address] [place] [address] PCP - General Family Medicine 02/09/18 documented as of this encounter
--- OUTSIDE RECORDS SUMMARY | 2025-01-26 19:30 | XMS_ITS | Encounter Summary ---
Author Organization [employer] Address [address] [place] [address] [address] [place] [address] Care Team Providers Care Rotary Adjuster Name Role Phone Name, Chet VALDEZ Primary Care Provider [phone] Reason for Visit * Reason Onset Date Comments Med Refill 01/21/2025 Encounter Details Date Type Department Care Team (Late st Contact Info) Description 01/21/2025 Telephone [facility] [address] [place], [place] [phone] Name, MD Chet [address] [place], [place] [phone] Med Refill Social History Tobacco Use Types Packs/Day Years [...] encounter Miscellaneous Notes * Telephone Encounter - Jahaira Smalls RN - 01/21/2025 12:32 PM EDT Per Mo, Oxycodone last picked up 12/31/24 for a 28 day supply. Refill due 01/28/25. Will forwardto PCP on 01/26/25. * Telephone Encounter - [place] - 01/21/2025 12:27 PM EDT TC from pt requesting medication refill. Medications needing refill: oxyCODONE (Roxicodone) 15 MG immediate release tablet [facility] be sent to: [id number] [address] documented in this encounter Plan of Treatment Upcoming Encounters Date Type Department Care Team (Late st Contact Info) Description 02/03/2025 10:30 AM EDT Medication Management [facility] [address] [place] [address] Lily Schmidt, PharmD [address] [place] [address] 02/16/2025 10:30 AM EDT Clinical Support [facility] [address] [place] [address] Jahaira Smalls RN documented as of this encounter Visit Diagnoses Not on filedocumented in this encounter Additional Health Concerns Assessment Noted Time PHQ-9 Depression Total Score: 0 09/19/19 24 11:32 AM EDT documented as of this encounter Care Teams Rotary Adjuster Relationship Specialty Start Date End Date Name, MD Chet [address] [place] [address] PCP - General Family Medicine 02/09/18 documented as of this encounter
--- OUTSIDE RECORDS SUMMARY | 2025-01-26 19:30 | XMS_ITS | Encounter Summary ---
Author Organization [employer] Address [address] [facility] 7t [place] [address] Care Team Providers Care Laborer Brush Clearing Name Role Phone Name, Chet VALDEZ Primary Care Provider [phone] Encounter Details Date Type Department Care Team ([facility] st Contact Info) Description 04/21/2024 Telephone [facility] [address] [place], [place] [phone] Name, MD Chet [address] [place], [place] [phone] Social History Tobacco Use Types Packs/Day Years [...] is your housing situation today? I have lopez ferguson 09/19/[address] you li ve. Do you have problems with any of the following? None of the above 09/19/2023 Food Insecurity Answer Date Recorded Within the past 12 months, y ou worried that your food would run out before you got money to buy more: Never True 09/19/2023 Within the past 12 months,th e food you bought just didn't last and you didn't have enough money to get more: Never True 02/2024 Transportation Answer Date Recorded In the past 12 months, has l ack of transportation kept you from medical appts, meetings, work or from getting things needed for daily living? No 09/19/2023 Utilities Answer Date Recorded In the past 12 months, has t he electric, gas, oil or water company threatened to shut off services in your home? Yes 09/19/2023 Depression Answer Date Recorded Patient Health Questionnaire-2 Score 0 09/19/2023 Sex and Gender Information Value Date Recorded Sex Assigned at Male 03/11/2022 10:34 AM EDT Legal Sex Male 10:34 AM EDT Gender Identity Male 03/11/2022 10:34 AM EDT Sexual Orientation Straight 03/11/2022 10 :34 AM EDT documented as of this encounter Plan of Treatment Upcoming Encounters Date Type Department Care Team (Late st Contact Info) Description 02/03/2025 10:30 AM EDT Medication Management [address] [address] Lily Schmidt, PharmD [address] [place] [phone] 02/16/2025 10:30 AM EDT Clinical Support [address] [address] Jahaira Smalls, NEGAR documented as of this encounter Visit Diagnoses Not on filedocumented in this encounter Additional Health Concerns Assessment Noted Time PHQ-9 Depression Total Score: 0 09/19/19 24 11:32 AM EDT documented as of this encounter Care Teams Laborer Brush Clearing Relationship Specialty Start Date End Date Name, MD Chet [address] [place] [id number] PCP - General Family Medicine 02/09/18 documented as of this encounter
--- OUTSIDE RECORDS SUMMARY | 2025-01-26 19:30 | XMS_ITS | Encounter Summary ---
Author Organization [employer] Address [address] [place] [address] [address] [place] [address] Care Team Providers Care Wool Hat Forming Machine Tender Name Role Phone Name, Chet VALDEZ Primary Care Provider [phone] Reason for Visit * Reason Onset Date Comments Med Refill 01/21/2025 Encounter Details Date Type Department Care Team (Late st Contact Info) Description 01/21/2025 Refill [facility] [address] [place], [place] [phone] Name, MD Chet [address] [place] [address] Other chronic pain Social History Tobacco Use Types Packs/Day Years [...] encounter Miscellaneous Notes * Telephone Encounter - Sonali Jewell LPN - 01/21/2025 1:09 PM EDT Erisa Attorney ck on 01.21.25/last visit 11/02/24 * Telephone Encounter - [place] - 01/21/2025 12:25 PM EDT TC from pt requesting medication refill. Medications needing refill: pregabalin (Lyrica) 150 MG capsule To be sent to: [id number] [address] documented in this encounter Plan of Treatment Upcoming Encounters Date Type Department Care Team (Late st Contact Info) Description 02/03/2025 10:30 AM EDT Medication Management [facility] [address] [place], [place] [phone] Lily Schmidt, PharmD [address] [place], [place] [phone] 02/16/2025 10:30 AM EDT Clinical Support [facility] [address] [place] [address] Jahaira Smalls RN documented as of this encounter Visit Diagnoses Diagnosis Other chronic pain documented in this encounter Additional Health Concerns Assessment Noted Time PHQ-9 Depression Total Score: 0 09/19/19 24 11:32 AM EDT documented as of this encounter Care Teams Wool Hat Forming Machine Tender Relationship Specialty Start Date End Date Name, MD Chet [address] [place] [address] PCP - General Family Medicine 02/09/18 documented as of this encounter
--- OUTSIDE RECORDS SUMMARY | 2025-01-26 19:30 | XMS_ITS | Encounter Summary ---
Author Organization [employer] Address [address] [facility] 7[address] [place] [address] Care Team Providers Care Binding Nicker Name Role Phone Name, Chet VALDEZ Primary Care Provider [phone] Reason for Visit * Reason Onset Date Comments UTOX abnormal 01/26/2025 Encounter Details Date Type Department Care Team (Late st Contact Info) Description 01/26/2025 Telephone [facility] [address] [place] [address] [phone] Jahaira Smalls RN UTOX abnormal Social History Tobacco Use Types Packs/Day Years [...] Telephone Encounter - Jahaira Smalls RN - 01/26/2025 2:14 PM EDT Pt had [facility] appt today UTOX Pos LESLY, sent out for confirmation. Admits to using marijuana recently that his girlfriend got from a friend. Reviewed dangers of usingmarijuana not from dispensary. Scheduled to come in again for [facility] V 02/16/25. documented in this encounter Plan of Treatment Upcoming Encounters Date Type Department Care Team (Late st Contact Info) Description 02/03/2025 10:30 AM EDT Medication Management [address] [address] Lily Schmidt, PharmD [address] [place] [phone] 02/16/2025 10:30 AM EDT Clinical Support [facility] [address] [place] [phone] Jahaira Smalls, RN documented as of this encounter Visit Diagnoses Diagnosis Chronic pain syndrome documented in this encounter Additional Health Concerns Assessment Noted Time PHQ-9 Depression Total Score: 0 09/19/19 24 11:32 AM EDT documented as of this encounter Care Teams Binding Nicker Relationship Specialty Start Date End Date Name, MD Chet [address] [place] [address] PCP - General Family Medicine 02/09/18 documented as of this encounter
--- OUTSIDE RECORDS SUMMARY | 2025-01-26 19:30 | XMS_ITS | Encounter Summary ---
Author Organization [employer] Address [address] [facility] 7[address] [place] [address] Care Team Providers Care Senior Sales Operations Analyst Name Role Phone Name, Chet VALDEZ Primary Care Provider [phone] Reason for Visit * Reason Comments Med Refill Encounter Details Date Type Department Care Team ([facility] st Contact Info) Description 04/27/2024 Refill [facility] [address] [place], [place] [phone] Name, MD Chet [address] [place] [address] Heartburn Social History Tobacco Use Types Packs/Day Years [...] Description 02/03/2025 10:30 AM EDT Medication Management [facility] [address] [place] [phone] Lily Schmidt PharmD [address] [place] [phone] 02/16/2025 10:30 AM EDT Clinical Support [address] [phone] Jahaira Smalls, NEGAR documented as of this encounter Visit Diagnoses Diagnosis Heartburn documented in this encounter Additional Health Concerns Assessment Noted Time PHQ-9 Depression Total Score: 0 09/19/19 24 11:32 AM EDT documented as of this encounter Care Teams Senior Sales Operations Analyst Relationship Specialty Start Date End Date Name, MD Chet [address] [place] [id number] PCP - General Family Medicine 02/09/18 documented as of this encounter
--- OUTSIDE RECORDS SUMMARY | 2025-01-26 19:30 | XMS_ITS | Encounter Summary ---
Author Organization [employer] Address [address] [place] [address] 7[address] [place] [address] Care Team Providers Care Supervisor Bleach [employer] Name Role Phone Name, Chet VALDEZ Primary Care Provider Reason for Visit * Reason Comments Med Refill Encounter Details Date Type Department Care Team (Late Contact Info) Description 07/09/2022 Refill [facility] MED[facility]INE [address] [place] [address] [phone] Name, MD Chet [address] [place] [phone] Social History Tobacco Use Types Packs/Day Years Used Date Smoking Tobacco: Every Day Cigarettes 1 53.7 Started: 05/12/1970 Smokeless Tobacco: Never Alcohol Use Standard Drinks/Week Comments Yes 2 (1 standard drink = 0.6 oz pur e alcohol) Drinks 'rarely' Depression Answer Date Recorded Patient Health Questionnaire-9 Score 11 04/25/2022 Depression Answer Date Recorded Patient Health Questionnaire-2 Score 2 04/25/2022 Sex and Gender Information Value Date Recorded Sex Assigned at Male 03/11/2022 10:34 AM EDT Legal Sex Male 10:34 AM EDT Gender Identity Male 03/11/2022 10:34 AM EDT Sexual Orientation Straight 03/11/2022 10 :34 AM EDT COVID-19 Exposure Response Date Recorded In the last 10 days, have yo u been in contact with someone who was confirmed or suspected to have Coronavirus/COVID-19? No / Unsure 06/18/2022 10:02 AM EST documented as of this encounter Plan of Treatment Upcoming Encounters Date Type Department Care Team (Late Contact Info) Description 02/03/2025 10:30 AM EDT Medication Management [address] [address] Lily Schmidt, Jody [address] [place] [address] 02/16/2025 10:30 AM EDT Clinical Support [address] [address] Jahaira Smalls RN documented as of this encounter Visit Diagnoses Not on filedocumented in this encounter Additional Health Concerns Assessment Noted Time PHQ-9 Depression Total Score: 11 04/25/ 022 10:11 AM EST documented as of this encounter Care Teams Supervisor [employer]ach Plant Relationship Specialty Start Date End Date Name, MD Chet [address] [place] [phone] PCP - General Family Medicine 02/09/18 documented as of this encounter
--- OUTSIDE RECORDS SUMMARY | 2025-01-26 19:30 | XMS_ITS | Encounter Summary ---
Author Organization [employer] [facility] Address [address] [place] [address] 7[address] [place] [address] Care Team Providers Care Dining Service Worker Name Role Phone Name, Chet VALDEZ Primary Care Provider [phone] Encounter Details Date Type Department Care Team ([facility] Contact Info) Description 04/08/[address] [phone] Provider, MD Williams Social History Tobacco Use Types Packs/Day Years [...] suspected to have Coronavirus/COVID-19? No / Unsure 04/11/2022 10:24 AM EST documented as of this encounter Plan of Treatment Upcoming Encounters Date Type Department Care Team (Late st Contact Info) Description 02/03/2025 10:30 AM EDT Medication Management [address] [address] Lily Schmidt, PharmD [address] [place], [place] [phone] 02/16/2025 10:30 AM EDT Clinical Support [address] [address] Jahaira Smalls RN documented as of this encounter Visit Diagnoses Not on filedocumented in this encounter Care Teams Dining Service Worker Relationship Specialty Start Date End Date Name, MD Chet [address] [place] [address] PCP - General Family Medicine 02/09/18 documented as of this encounter
--- OUTSIDE RECORDS SUMMARY | 2025-01-26 19:30 | XMS_ITS | Clinical Summary ---
Author Organization [employer] Address [address] [facility] [address] [place] [address] Care Team Providers Care Director Compliance Name Role Phone Name, Chet VALDEZ Primary Care Provider [phone] Allergies Active Allergy Reactions Criticality Noted Date Comments Niacin 08/07/2022 Medications * This document contains information received from the source organization and may not represent a complete record from that organization. albuterol 108 (90 Base) MCG/ACT inhaler Inhale 2 puffs every 4 (four) hours. 08/18/19 21 Active buPROPion (Zyban) 150 MG 12 hr tabletIndicatio ns:Tobacco user Take 1 tablet (150 mg) by mouth in the morning and at bedtime. Do not crush, chew, or split. 60 tablet 2 04/25/20 22 Active neomycin-bacitr acin-polymyxin (Neosporin) 5-400-5000 ointmentIndicat ions:Staphyloco ccal arthritis of left elbow (CMS/HCC) Apply topically 2 times daily. 30 g 05/10/20 22 Active Blood Pressure kit Use once a day 1 kit 12/05/19 23 Active Varenicline Tartrate, Starter, (Chantix Starting Month ) 0.5 MG X 11 & 1 MG X 42 tablet therapy pack Take 0.5 mg by mouth Once daily for 3 days, THEN 0.5 mg 2 times daily for 4 days, THEN 1 mg 2 times daily for 21 days. 53 each 06/12/19 24 Active omega-3 acid ethyl esters (Lovaza) 1 g capsule Take 1 capsule (1 g) by mouth 2 times daily. 60 capsule 11 06/13/19 24 Active atorvastatin (Lipitor) 40 MG tabletIndicatio ns:Essential hypertension TAKE 1 TABLET(40 MG) BY MOUTH IN THE MORNING 90 tablet 1 08/03/19 25 Active lisinopril 40 MG tabletIndicatio ns:Essential hypertension TAKE 1 TABLET BY MOUTH EVERY DAY 90 tablet 1 10/26/19 25 Active amLODIPine (Norvasc) 2.5 MG tabletIndicatio ns:Essential hypertension TAKE 1 TABLET BY MOUTH EVERY DAY 90 tablet 1 10/28/19 25 Active omeprazole (PriLOSEC) [address] capsuleIndicati ons:Heartburn TAKE ONE CAPSULE BY MOUTH DAILY BEFORE A MEAL 90 capsule 1 11/23/19 25 Active pregabalin (Lyrica) 150 MG capsuleIndicati ons:Other chronic pain TAKE 1 CAPSULE BY MOUTH THREE TIMES DAILY 90 capsule 01/22/20 25 Active sildenafil (Viagra) 50 MG tablet TAKE 1 TABLET BY MOUTH EVERY DAY 1 HOUR BEFORE SEXUAL RELATIONS NEEDED 10 tablet 2 01/22/20 25 Active oxyCODONE (Roxicodone) 15 MG immediate release tabletIndicatio ns:Chronic pain syndrome Take 1 tablet (15 mg) by mouth every 6 (six) hours for 28 days. Do not start before January 28, 2025. 112 tablet 01/29/20 25 025 Active Viagra 50 MG tablet TAKE 1 TABLET BY MOUTH 1 HOUR BEFORE SEXUAL RELATIONS ONCE DAILY NEEDED. 10 tablet 2 11/06/19 25 025 Discontinued(Re order (will not trigger notification to Pharmacy)) oxyCODONE (Roxicodone) 15 MG immediate release tabletIndicatio ns:Chronic pain syndrome Take 1 tablet (15 mg) by mouth every 6 (six) hours for 28 days. Do not start before December 02, 2024. 112 tablet 12/03/19 25 025 Discontinued(Re order (will not trigger notification to Pharmacy)) pregabalin (Lyrica) 150 MG capsuleIndicati ons:Other chronic pain TAKE 1 CAPSULE BY MOUTH THREE TIMES DAILY 90 capsule 12/25/19 25 025 Discontinued(Re order (will not trigger notification to Pharmacy)) oxyCODONE (Roxicodone) 15 MG immediate release tabletIndicatio ns:Chronic pain syndrome Take 1 tablet (15 mg) by mouth every 6 (six) hours for 28 days. Do not start before December 31, 2024. 112 tablet 01/01/20 025 Discontinued(Re order (will not trigger notification to Pharmacy)) Viagra 50 MG tablet TAKE 1 TABLET BY MOUTH 1 HOUR BEFORE SEXUAL RELATIONS ONCE DAILY NEEDED. 10 tablet 2 01/22/20 25 025 Discontinued Active Problems Problem Noted Date Diagnosed Date Long-term current use of opiate analgesic 2024 Seborrhea 06/12/2023 06/12/2023 NSAID long-term use 06/12/2023 06/12/2023 High cholesterol 06/12/2023 Overview (06/12/2023): Continue statin and check fasting blood work Benign localized prostatic h yperplasia with lower urinary tract symptoms (LUTS) 12/04/2022 Chalazion 12/04/2022 Chronic narcotic use 12/04/2022 Claustrophobia 12/04/2022 Constipation 12/04/2022 Coronary artery calcinosis 12/04/2022 Epidermoid cyst of skin 12/04/2022 Failed back syndrome 12/04/2022 Fatty liver 12/04/2022 Hard of hearing 12/04/2022 Hiatal hernia 12/04/2022 Knee pain 12/04/2022 Lumbar disc herniation 12/04/2022 Lumbar spondylosis 12/04/2022 Neck pain 12/04/2022 Nevus of vermilion border of lower lip Nocturia 12/04/2022 Obesity (BMI 30-39.9) 12/04/2022 Pain in joint of right shoulder 12/04/2022 Rotator cuff sprain 12/04/2022 Senile hyperkeratosis 12/04/2022 Vasculitis 12/04/2022 Chronic pain 12/04/2022 Staphylococcal arthritis of left elbow Assessment & Plan (05/14/2022 3:43 PM EST): Patient to complete 2 more days of abs. May need ortho referral, refer to to [facility]. Order cbc w esr and if significantly abn, may need longer course of abs. FU w PCP or me in 3-4w Wound dressing done today by RN. Cellulitis of left elbow 05/14/2022 Assessment & Plan (05/14/2022 4:34 PM EST): Patient is here for a sick visit. Initially seen at [facility] ER on 05/02/222 after a fall that landed him on his left arm, he subsequently developed redness and swelling in the area of the injury, x-rays of his left shoulder and elbow on 05/02/2022 did not show fracture. left elbow showed Olecranon bursitis. He was given PO Keflex and Doxycicline and sent home. He was seen 2 days later on 05/04/2022 after being called for a positive Fluid cx for staph Aureus, ER physician had recommended Hospitalization but pt declined. He was then recommended to continue on the Doxy that he tells me already finished, and although he was recommended to see Ortho, it appears he was supposed to call them to schedule an appointment.He was seen here again on 05/10/[address] Arielle Hammer and she ordered an ESR that was only mildly elevated at 22 and a normal WBC. Today patient is here because despite the fact that he completed the Antibiotic course, he continues to experience severe left elbow pain, swelling and drainage. No fever, and has full ROM of his elbow Plan: Given his lack of improvement and persistent pain, redness and swelling, as well as physical exam suggestive of a large fluid collection on his elbow I have recommended pt to be seen back at the ER for repeat imaging as well as for diagnostic and therapeutic joint aspiration to rule out septic athritis. He might also benefit from a couple of days of IV Abx. Pt is agreable with plan, will bring him to [facility]. I have sent a prescription for Bactrim DS 1 tab po BID x 14 days, and I have placed a referral for [facility], since he will probably be released from the Hospital with instruction to follow up with Ortho. Follow up with PCP after that Tobacco user 04/25/2022 Erectile dysfunction 04/25/2022 Hip pain 03/26/2022 Bilateral hearing loss 09/10/2018 Chronic pain syndrome 05/13/2018 Hypertension 05/13/2018 Avascular necrosis of hip 03/24/2018 Overview (12/04/2022): 2019 X-ray showed IMPRESSION: There is patchy sclerosis involving the femoral heads bilaterally concerning for the presence of avascular necrosis that can be further assessed with MRI. Followed at [facility], recommended observation and yearly X-ray but no surgery yet Chronic low back pain 02/09/2018 Decreased hearing 02/09/2018 Heartburn 02/09/2018 Hypertriglyceridemia, essential 02/09/2018 Osteoarthritis of left hip 02/09/2018 Encounters * This document contains information received from the source organization and may not represent a complete record from that organization. Date Type Department Care Team Description 01/26/2025 2:00 PM EDT Clinical Support [facility] [place] [address] Jahaira Smalls, NEGAR Long-term current use of opiate analgesic (Primary Dx) 01/26/2025 Telephone [facility] [place] [address] Jahaira Smalls, RN UTOX abnormal 01/26/2025 Travel 01/24/2025 Refill [facility] [place] [address] Chet Escalera MD Chronic pain syndrome 01/21/2025 Refill [facility] [address] [place] [address] Chet Escalera MD 01/21/2025 Telephone [facility] [address] [place] [address] Chet Escalera MD Med Refill 01/21/2025 Telephone [facility] [address] [place] [address] Chet Escalera MD Med Refill 01/21/2025 Refill [facility] [address] [place] [address] Chet Escalera MD Other chronic pain 01/11/2025 Telephone [facility] [address] [place] [address] Chet Escalera MD Appointment Request 01/11/2025 Telephone [facility] [address] [place] [address] Chet Escalera MD Appointment Request 12/31/2024 Telephone [facility] [address] [place] [address] Katerina Moreno MA oct recalls 12/24/2024 Refill [facility] [address] [facility] [place] [address] Chet Escalera MD Chronic pain syndrome 12/24/2024 Refill [facility] [address] [facility] [place] [address] Chet Escalera MD Other chronic pain 11/29/2024 Refill [facility] [address] [place] [address] NameChet MD Chronic pain syndrome 11/20/2024 Refill [facility] [address] [place] [address] Chet Escalera MD Heartburn 11/18/2024 Refill [facility] [address] [place] [address] Arielle Hammer MD Other chronic pain 11/10/2024 Telephone [facility] [address] [place] [address] Chet Escalera MD Nurse Triage 11/05/2024 Refill [facility] [address] [place] [address] Chet Escalera MD 11/04/2024 Telephone [facility] [address] [place] [address] Chet Escalera MD Med Refill 11/04/2024 Refill [facility] [address] [place] [address] Chet Escalera MD Chronic pain syndrome 11/02/2024 1:15 PM EDT Office Visit [facility] [address] [place] [address] Chet Escalera MD Hypertension, unspecified type (Primary Dx); Tobacco dependence; Grief; Caregiver stress; Chronic bilateral low back pain with right-sided sciatica 11/02/2024 Travel 11/01/2024 Telephone [facility] [address] [place] [address] Katerina Moreno MA charrt prep 10/27/2024 Refill [facility] [address] [place] [address] Chet Escalera MD Essential hypertension from Last 3 Months Immunizations Immunization Administration Dates Next Due Influenza High-dose Quadriva lent Preservative Free 02/24/2023 Influenza Injectable Quadriv alant Preservative Free IIV4 MDCK 12/29/2019 Influenza Quadrivalent Adjuvanted 01/25/2022 Influenza injectable quadriv alent IIV4 with preservative 02/09/2018 Influenza injectable quadriv alent preservative free 02/16/2019,12/11/2016,01/12/2016,01/14 Influenza, High Dose Seasona l, Preservative Free 02/12/2024 Influenza, IIV3, injectable 02/09/2021,0 12/11/2016,01/12/2016,01/13,02/10/2014,02/09/2014,03/31/2012 ,02/19/2011,02/27/2010 Influenza, seasonal, injecta ble, preservative free 01/14/2015,03/31/2012,02/19/2011,02/27 Moderna Covid-19 Vaccine 12+ 08/23/2020,07/22/19 21 Pneumococcal Conjugate PCV 20 05/01/2023 Pneumococcal Polysaccharide PPSV23 04/25/2022, RSV Bivalent 03/05/2023 Td (adult), unspecified 05/12/2009 Tdap 03/19/2019 Zoster, Recombinant 04/18/2020,04/17/2020,2019 Social History Tobacco Use Types Packs/Day Years Used Date Smoking Tobacco: Every Day Cigarettes 1 53.7 Started: 05/12/1971 Passive Smoke Exposure: Current Smokeless Tobacco: Never Tobacco Cessation:Ready to Q uit: Not Asked; Counseling Given: Not Answered Alcohol Use Standard Drinks/Week Comments Yes 2 [...] Orientation Straight 03/11/2022 10 :34 AM EDT Last Filed Vital Signs Vital Sign Reading Time Taken Comments Blood Pressure 134/82 11/02/2024 1:36 PM EDT Pulse 82 11/02/2024 1:36 PM EDT Temperature 36.2 C (97.1 F) 09/19/2023 11:29 AM EDT Respiratory Rate 14 11/02/2024 1:36 PM EDT Oxygen Saturation 97% 11/02/2024 1:36 PM EDT Inhaled Oxygen Concentration - - Weight 87.6 kg (193 lb 3.2 oz) 11/02/2024 1:36 P M EDT Height 170.2 cm (5' 7 ) 11/02/2024 1:36 PM EDT Body Mass Index 30.26 11/02/2024 1:36 PM EDT Plan of Treatment Upcoming Encounters Date Type Department Care Team (Late st Contact Info) Description 02/03/2025 10:30 AM EDT Medication Management [facility] [address] [place] [address] Lily Schmidt, PharmD [address] [place] [address] 02/16/2025 10:30 AM EDT Clinical Support [facility] [address] [place] [address] Jahaira Smalls, RN Health Maintenance Due Date Last Done Comments CT Colonography 1955 FIT DNA/Cologuard 1955 FIT 1955 FOBT 1955 Sigmoidoscopy 1955 Hepatitis C Screening 1974 Hepatitis A Vaccines (1 of 2 - Risk 2-dose series) 09/15/1975 Hepatitis B Vaccines (1 of 3 - Risk 3-dose series) 2016 Depression Screening 09/18/2024 09/19/2023, 09/19/19 24 COVID-19 Vaccine ( season) 2025 02/12/2024, 02/24/2023, 02/22/2022, Additional history exists Influenza Vaccine (#1) 2025 , 02/24/2023, 01/25/2022, Additional history exists Lung Cancer Screening 03/03/2025 03/03/2024, 023 Alcohol/Substance Use Screening 11/02/2025 11/02/2024 SDOH Screening 11/02/2025 11/02/2024 Tobacco Screening 11/02/2025 11/02/2024 Colonoscopy 10/22/2028 10/22/2018 Colorectal Cancer Screening 10/22/2028 DTaP/Tdap/Td Vaccines (2 - Td or Tdap) 03/19/2029 03/19/2019, 05/12/2009 Lipid Panel 11/15/2029 11/15/2024, 05/2023, 08/27/2022, Additional history exists Zoster Vaccines Completed 04/18/2020, 11/2019, 01/28/2020 RSV Patients and Patients Aged 60 years or older Completed 03/05/2023 Pneumococcal Vaccine: 50+ Years Completed 05/01/2023, 04/25/2022, 01/07/2017 HIB Vaccines Aged Out No longer eligi [...] patient's age to complete this topic Meningococcal Vaccine Aged Out No aayush arely eligible based on patient's age to complete this topic RSV under 20 months Aged Out No longe r eligible based on patient's age to complete this topic Rotavirus Vaccines Aged Out No longer eligible based on patient's age to complete this topic Procedures Procedure Name Priority Date/Time Associated Diagnosis Comments POCT NAVJOT-14 URINE DRUG SCREEN Routine 01/26/2025 2:08 PM EDT Long-term current use of opiate analgesic LIPID PANEL, STANDARD Routine 11/15/2024 11:48 AM EDT Hypertension, unspecified type COMPREHENSIVE METABOLIC PANEL Routine 11/15/2024 11:48 AM EDT Hypertension, unspecified type LDCT LUNG SCREENING Routine 03/03/2024 1 1:07 AM EDT HM COLONOSCOPY Routine 10/22/2018 from Last 3 Months or Most Recently Relevant to Health Maintenance Results * (ABNORMAL) POCT NAVJOT-14 Urine Drug [...] procedure / Unknown 01/26/2025 2:08 PM EDT us Chetemily Escalera MD POINT OF CARE TEST ENTER/EDIT OR DERABLES Final Result * (ABNORMAL) Lipid Panel, Standard (11/15/2024 11:48 AM EDT) Triglycerides 288(H) <150 mg/dL [facility] Comment:Desirable Triglyceri de: less than 150 mg/dLBorderline High Triglyceride 150-199 mg/dLHigh Triglyceride: 200-499 mg/dLVery High Triglyceride: greater than or equal to 5OO mg/dL Cholesterol 161 <200 mg/dL [facility] Comment:Desirable Cholestero l: less than 200 mg/dLBorderline High Cholesterol: 200-239 mg/dLHigh Cholesterol: greater than 239 mg/dL LDL Cholesterol Calculated 66 <100 mg/dL [facility] Comment:Desirable LDL: less than 100 mg/dLNear Optimal/Above Optimal LDL: 110- 129 mg/dLBorderline High LDL: 130-159 mg/dLHigh LDL: 160-189 mg/dLVery High LDL: greater than or equal to 190 mg/dL HDL Cholesterol 38(L) >40 mg/dL [facility] Comment:Desirable HDL: great er than 40 mg/dL Note: This HDL assay may give artificially low results in patients with liver disease. Blood Venous blood specimen / Unknown 11/15/2024 11:48 AM EDT 11/15/2024 1:32 PM EDT us Chet Escalera MD LAB BLOOD ORDERABLES Final Resul t [facility] [address] [place] [phone] * (ABNORMAL) Comprehensive Metabolic Panel (11/15/2024 11:48 AM EDT) Sodium 137 135 - 145 mmol/L [facility] Potassium 4.2 3.3 - 5.1 mmol/L [facility] Chloride 107 96 - 108 mmol/L [facility] Carbon Dioxide 21(L) 22 - 29 mmol/L [facility] Anion Gap 13 12 - 20 [facility] Urea Nitrogen (BUN) 15 9 - 16 mg/dL [facility] Creatinine, Serum 1.01 0.5 - 1.4 mg/dL [facility] Estimated Glomerular Filt Rate >60 [facility] Comment:Chronic Kidney Disea se: Estimated GFR < 60 mL/min/1.19p7Axidbt Kidney Disease: Estimated GFR < 15 mL/min/1.73m2 Glucose 110 60 - 115 mg/dL [facility] Calcium 9.0 8.4 - 10.2 mg/dL [facility] Bilirubin, Total 0.6 0.0 - 1.0 mg/dL [facility] Aspartate Amino Transferase 29 5 - 37 U/L [facility] Alanine Aminotransferase 39 0 - 40 U/L [facility] Total Protein 6.9 6.5 - 8.0 g/dL [facility] Albumin Level 4.5 3.5 - 5.0 g/dL [facility] Alkaline Phosphatase 91 39 - 117 U/L [facility] Blood Venous blood specimen / Unknown 11/15/2024 11:48 AM EDT 11/15/2024 1:32 PM EDT us Chet Name MD LAB BLOOD ORDERABLES Final Resul t [facility] [address] [place] [phone] * CT Lung Screening Low dose (03/03/2024 11:07 AM EDT) Anatomical Region Laterality Modality Lung Computed Tomogra phy 03/03/2024 11:0 7 AM EDT Narrative 04/21/2024 1:30 PM EST [address] [address] [address] Scan Report Signed Patient: Sedrick Tolbert MR#: [id number] : 1955 Acct:[id number] Age/Sex: 68 / M ADM Date: 03/03/24 Loc: HO.CT Attending Dr: Rianna Negron PA-C Ordering Physician: Rianna Negron PA-C Date of Service: 03/03/24 Procedure(s): CT lung screening Accession Number(s): [id number] cc: Rianna Negron PA-C; Name,Chet VALDEZ EXAMINATION: CT LOW-DOSE SCREENING CHEST WITHOUT CONTRAST CLINICAL INFORMATION: Nicotine dependence, cigarettes, uncomplicated. The patient is a current smoker with a 53 pack-year history of smoking. COMPARISON: Multiple prior CT scans of the chest, the most recent of which is dated 10/10/2022 and the most remote of which is dated 08/25/2007. TECHNIQUE: Multidetector volumetric CT imaging of the chest is performed on a Siemens SOMATOM Definition scanner without contrast using low dose technique. Additional 2D coronal and sagittal reformatted images and axial 3D maximum intensity projection (MIP) images are generated on the CT workstation. This CT examination was performed using dose optimization techniques as appropriate, variously including the following: *Automated exposure control *Adjustment of mA and/or kV according to patient size (this includes techniques or standardized protocols for targeted exams where dose is matched to indication/reason for exam; i.e. extremities or head) *Use of iterative reconstruction technique TOTAL EXAM DLP: 61 mGy-cm. CTDIvol: 1.72 mGy. FINDINGS: PULMONARY NODULES: No suspicious pulmonary nodules. LUNGS: Lungs bilaterally symmetrically expanded. There is minimal emphysema and bronchial thickening without bronchiectasis. No effusion or pneumothorax. Central airways patent. MEDIASTINUM: No mediastinal, hilar or axillary adenopathy or free fluid collection. CORONARY ARTERY CALCIFICATION: Present. THYROID GLAND: Unremarkable to the extent seen. CARDIOVASCULAR STRUCTURES: Aortic and heart size normal. No pericardial effusion. CHEST WALL/AXILLA: Unremarkable. UPPER ABDOMEN: Included portions of the solid organs in the upper abdomen unremarkable on noncontrast imaging aside from the presence of hepatic steatosis, new compared to prior. OSSEOUS STRUCTURES: No suspicious focal findings. CT/CT lung screening IMPRESSION: 1. No evidence of pulmonary malignancy. 2. Incidental note made of minimal emphysema and hepatic steatosis. ASSESSMENT: 1. Lung-RADS Category 1: Negative. There are no nodules or there are definitely benign nodules. N/A 2. Lung-RADS Category S: Negative. There are no clinically significant or potentially clinically significant findings not related to the lungs requiring urgent additional evaluation. RECOMMENDATION: Continued routine annual low-dose CT lung screening in 1 year is recommended. An order for CT CHEST LOW DOSE CANCER SCREENING ([id number]) can be placed. Electronically signed by: Beau Ulrich MD 04/21/2024 01:27 PM [facility] Dictated By: Beau Ulrich MD Signed By: <Electronically signed by Beau Ulrich MD in OV> 04/21/24 1327 DD/ 1107 TD/TT: 03/03/24 1115 Remedy Developer: SS Procedure Note Donotuseinterpreter, Image - 04/21/[address] [place] [address] [address] Scan Report Signed Patient: Sedrick Tolbert RMR#: [id number] : 7Acct:[id number] Age/Sex: 68 / MADM Date: 03/03/24 Loc: .CT Attending Dr: Rianna Negron PA-C Ordering Physician: Rianna Negron PA-C Date of Service: 03/03/24 Procedure(s): CT lung screening Accession Number(s): [id number] cc: Rianna Negron PA-C; Name,Chet VALDEZ EXAMINATION: CT LOW-DOSE SCREENING CHEST WITHOUT CONTRAST CLINICAL INFORMATION: Nicotine dependence, cigarettes, uncomplicated. The patient is a current smoker with a 53 pack-year history of smoking. COMPARISON: Multiple prior CT scans of the chest, the most recent of which is dated 10/10/2022 and the most remote of which is dated 08/25/2007. TECHNIQUE: Multidetector volumetric CT imaging of the chest is performed on a Siemens SOMATOM Definition scanner without contrast using low dose technique. Additional 2D coronal and sagittal reformatted images and axial 3D maximum intensity projection (MIP) images are generated on the CT workstation. This CT examination was performed using dose optimization techniques as appropriate, variously including the following: *Automated exposure control *Adjustment of mA and/or kV according to patient size (this includes techniques or standardized protocols for targeted exams where dose is matched to indication/reason for exam; i.e. extremities or head) *Use of iterative reconstruction technique TOTAL EXAM DLP: 61 mGy-cm. CTDIvol: 1.72 mGy. FINDINGS: PULMONARY NODULES: No suspicious pulmonary nodules. LUNGS: Lungs bilaterally symmetrically expanded. There is minimal emphysema and bronchial thickening without bronchiectasis. No effusion or pneumothorax. Central airways patent. MEDIASTINUM: No mediastinal, hilar or axillary adenopathy or free fluid collection. CORONARY ARTERY CALCIFICATION: Present. THYROID GLAND: Unremarkable to the extent seen. CARDIOVASCULAR STRUCTURES: Aortic and heart size normal. No pericardial effusion. CHEST WALL/AXILLA: Unremarkable. UPPER ABDOMEN: Included portions of the solid organs in the upper abdomen unremarkable on noncontrast imaging aside from the presence of hepatic steatosis, new compared to prior. OSSEOUS STRUCTURES: No suspicious focal findings. CT/CT lung screening IMPRESSION: 1. No evidence of pulmonary malignancy. 2. Incidental note made of minimal emphysema and hepatic steatosis. ASSESSMENT: 1. Lung-RADS Category 1: Negative. There are no nodules or there are definitely benign nodules. N/A 2. Lung-RADS Category S: Negative. There are no clinically significant or potentially clinically significant findings not related to the lungs requiring urgent additional evaluation. RECOMMENDATION: Continued routine annual low-dose CT lung screening in 1 year is recommended. An order for CT CHEST LOW DOSE CANCER SCREENING ([id number]) can be placed. Electronically signed by: Beau Ulrich MD 04/21/2024 01:27 PM [facility] Dictated By: Beau Ulrich MD Signed By: <Electronically signed by Beau Ulrich MD in OV> 04/21/24 1327 DD/ 1107 TD/TT: 03/03/24 1115 Remedy Developer: SS [facility] External Provider IMG CT PROCEDURES Edited Result - Final * Hm Colonoscopy (10/22/2018) Colonoscopy Normal Normal [facility] Final Result from Last 3 Months or Most Recently Relevant to Health Maintenance Insurance [employer] MEDICARE REPLACEMENT * Guarantor: Sedrick Tolbert Account Type Relation to Patient Date of Phone Billing Address Personal/Family Self [place], [place] Care Teams Director Compliance Relationship Specialty Start Date End Date Name, MD Chet [address] [place] [phone] PCP - General Family Medicine 02/09/18
--- OUTSIDE RECORDS SUMMARY | 2025-01-26 19:30 | XMS_ITS | Encounter Summary ---
Author Organization [employer] Address [address] [facility] 7t [place] [address] Care Team Providers Care Superintendent Division Name Role Phone Name, Chet VALDEZ Primary Care Provider [phone] Encounter Details Date Type Department Care Team (Latest Contact Info) Description 01/26/2025 Travel Social History Tobacco Use Types Packs/Day Years [...] Description 02/03/2025 10:30 AM EDT Medication Management [address] [address] Lily Schmidt, PharmD [address] [place] [address] 02/16/2025 10:30 AM EDT Clinical Support [address] [address] Jahaira Smalls, NEGAR documented as of this encounter Visit Diagnoses Not on filedocumented in this encounter Additional Health Concerns Assessment Noted Time PHQ-9 Depression Total Score: 0 09/19/19 24 11:32 AM EDT documented as of this encounter Care Teams Superintendent Division Relationship Specialty Start Date End Date Name, MD Chet [address] [place] [address] PCP - General Family Medicine 02/09/18 documented as of this encounter
--- OUTSIDE RECORDS SUMMARY | 2025-01-26 19:30 | XMS_ITS | Clinical Summary ---
Author Organization [facility] [facility] lin Address [address] [facility] [address] Care Team Providers Care Ux Design Manager Name Role Phone Pcp, Ruma Primary Care Provider [phone] Allergies Active Allergy Reactions Criticality Noted Date [...] MORNING 5 Active blood pressure test kit-large (Light Extraction BP Monitor) kit Use once a day [...] ONCE DAILY BEFORE A MEAL 5 Active pregabalin (LYRICA) 150 MG capsule Take [...] (42) tablet Take by mouth 4 Active Encounters Date Type Department Care Team Description 11/10/2024 12:20 PM EDT Office Visit [facility] [place] [address] Nela Lozano NP COPD with acute exacerbation [...] Adults 18 yrs or above (or HM Modifier)([facility]) 1974 Hepatitis C Virus Infection in Adolescents and Adults: Screening (or Modifier) ([facility]) 1974 [facility] Screening Reminder: Ceci ually for all adults ([facility]) 1974 Colorectal Cancer Screening 45 -75 Yrs (or HM Modifier) 2001 Colorectal Cancer: FLEXIBLE SIGMOIDOSCOPY Screening every 5 yrs 2001 Colorectal Cancer: Fecal Immunochemical Test (FIT) Annually [facility] 2001 Colorectal Cancer: High-sens itivity gFOBT Screening Annually [facility] 2001 Colorectal Cancer: Stool Col oguard Screening every 3 yrs 2001 Colorectal Cancer:CT Colonog candelaria Screening every 5 yrs 2001 Abdominal Aortic Aneurysm Screening: Men Aged 65 to 75 Years Who Have Smoked (or Modifier) ([facility]) 2021 Flu Vaccination: Ages 65+: Y early High Dose Recommended (or Modifier)([facility]) 12/10/2024 02/24/2023, 12/29/2019, 02/16/2019, Additional history exists COVID-19 Vaccine Screening: Initial Series and Booster Status ([facility]) ( season) 2025 08/23/2020, 07/21/2020 Lung Cancer: Screening Annua lly in adults aged 50 to 80 years (or HM Modifiers)([facility]) 03/03/2025 03/03/2024 Tobacco Smoking Cessation: i n Adults excluding Women: Behavioral and Pharmacotherapy Interventions ([facility]) 11/10/2025 11/10/2024, 11/10/2024 DTaP/Tdap/Td Vaccines ([facility]) (2 - Td or Tdap) 03/19/2029 03/19/2019, 05/12/2009 Zoster/Shingles Vaccine Seri es Screening: Adults aged 18+ yrs (or HM Modifiers)([facility]) Completed 04/18/2020, 04/17/2020, 01/28/2020 RSV Vaccines Completed 03/05/2023 Pneumococcal Vaccination Scr eening: Patients 50+ yrs of age ([facility]) Completed 05/01/2023, , 01/07/2017 Medical Devices Not on file Procedures Procedure Name Priority Date/Time Associated Diagnosis Comments LUMIRADX SARS-COV-2 RAPID RESULT ANTIGEN TEST Routine 11/10/2024 11:56 AM EDT COPD with acute exacerbation (CMS/HCC and HHS/HCC) Chronic cough from Last 3 Months Results * LumiraDX SARS-COV-2 Rapid Result Antigen Test (11/10/2024 11:56 AM EDT) LumiraDX SARS-COV-2 Rapid Result Antigen Test Negative Negative, Invalid, Not Tested, ERRONEOUS RUIZ [id number] INTERNAL CONTROLS VALID Yes--Test working appropriately RUIZ [id number] Expiration Date 03/02/2025 RUIZ [id number] Lot Number [id number] RUIZ [id number] LUMIRA TEST BRAND Lumiradx Sars-Cov-2 AG Test RUIZ [id number] Other 11/10/2024 11:5 6 AM EDT us Nela Lozano NP POINT OF CARE TEST ORDERABLES Final Result JOSEPH [id number] [address] [place] [address], from Last 3 Months Insurance [employer] Care Teams Ux Design Manager Relationship Specialty Start Date End Date Pcp, No PCP - General Family Medicine 11/10/24
--- OUTSIDE RECORDS SUMMARY | 2025-01-26 19:30 | XMS_ITS | Encounter Summary ---
Author Organization [employer] Address [address] [place] [address] 7t [place] [address] Care Team Providers Care Portfolio Administrator Name Role Phone Name, Chet VALDEZ Primary Care Provider [phone] Reason for Visit * Reason Onset Date Comments Medication Question 01/24/2025 Encounter Details Date Type Department Care Team (Late st Contact Info) Description 01/24/2025 Refill [facility] MEDICINE [address] [place], [place] [phone] Name, MD Chet [address] [place], [place] [phone] Chronic pain syndrome Social History Tobacco Use Types Packs/Day Years [...] as of this encounter Miscellaneous Notes * Addendum Note - Aayush Miguel RN - 01/26/2025 9:30 AM EDTAddended by: AAYUSH MIGUEL on: 01/26/2025 09:30 AM Modules accepted: Orders * Telephone Encounter - Aayush Miguel RN - 01/26/2025 9:03 AM EDT TC placed to pt regarding prescription they are having a difficult time filling as pt uses multiplepharmacies. Pt reports they are unsure of the medication prescription there is an issue with. Pt reports they received a call from their pharmacy but are unsure of what they issue is. Pt reports theypharmacy is [facility] pharmacy in [place], [place]. Advised pt senior grant writer to call pharmacy to try and determine theissue. Pt verbalized understanding and denies questions at this time. TC placed to [facility] pharmacy to gather further information. Pharmacy staff states the only medication there was an issue with was the pregabalin (Lyrica) 150 MG capsule. Pharmacy staff states the medication was out of stock, but hassince returned to stock and is ready for bean picker. TC placed to pt to inform and advise of pharmacy message. Advised pt per pharmacy staff, the only medication there was an issue with was the pregabalin (Lyrica) 150 MG capsule as the medication was out of stock, but has since returned to stock and is ready for bean picker. Pt verbalized understanding. Pt requesting medication refill for oxyCODONE (Lenore codone) 15 MG immediate release tablet. Pt asking if it will be ready for tomorrow. Advised medication to be sent to provider for review. Pt verbalized understanding and denies questions at this time. [employer] checked by senior grant writer on 01/26/25. Pt picked up a 28 day supply of oxyCODONE (Roxicodone) 15 MG immediate release tablet on 12/31/24. Pt due for refill on 01/28/25. Medication pended to PCP with starting date of 01/28/25 for review. Message forwarded to PCP to review and advise. * Telephone Encounter - Yeny Cuenca - 01/26/2025 8:14 AM EDT Tc from pt retuning call * Telephone Encounter - Elizabeth Lee RN - 01/24/2025 3:02 PM EDT T/C to pt to determine which medication pt is having difficulty filling and to determine which pharmacy pt is referring to as pt uses multiple pharmacies. No answer, v/m left to return call to [place] team nurses. * Telephone Encounter - [place]ane - 01/24/2025 11:19 AM EDT Tc from pt stating he was advised to contact pcp from pharmacy to discuss issue with scripts. Pt wsnot given much detail but was informed there is an issue with one of the scripts and is requesting help. Please contact pt at [phone]. documented in this encounter Plan of Treatment Upcoming Encounters Date Type Department Care Team (Late st Contact Info) Description 02/03/2025 10:30 AM EDT Medication Management [address] [address] Lily Schmidt PharmD [address] [place] [address] 02/16/2025 10:30 AM EDT Clinical Support [address] [address] Jahaira Smalls RN documented as of this encounter Visit Diagnoses Diagnosis Chronic pain syndrome documented in this encounter Additional Health Concerns Assessment Noted Time PHQ-9 Depression Total Score: 0 09/19/19 24 11:32 AM EDT documented as of this encounter Care Teams Portfolio Administrator Relationship Specialty Start Date End Date Name, MD Chet [address] [place] [address] PCP - General Family Medicine 02/09/18 documented as of this encounter
--- OUTSIDE RECORDS SUMMARY | 2025-01-26 19:30 | XMS_ITS | Clinical Summary ---
Author Organization [facility] Address [address] [place] [address] Care Team Providers Care Sweatband Flanger Name Role Phone Name, Chet VALDEZ Primary Care Provider [phone] Social History Tobacco Use Types Packs/Day Years [...] age to complete this topic Care Teams Sweatband Flanger Relationship Specialty Start Date End Date Name, MD Chet [address] [facility] [place] [address] PCP - General Internal Medicine 07/30/18
--- OUTSIDE RECORDS SUMMARY | 2025-01-26 19:30 | XMS_ITS | Encounter Summary ---
Author Organization [employer] Address [address] [facility] 7t [place] [address] Care Team Providers Care Tree Thinner Name Role Phone Name, Chet VALDEZ Primary Care Provider [phone] Reason for Visit * Reason Comments Med Refill Encounter Details Date Type Department Care Team ([facility] st Contact Info) Description 07/29/[address] [facility] MEDICINE [address] [place], [place] [phone] Name, MD Chet [address] [place], [place] [phone] Essential hypertension Social History Tobacco Use Types Packs/Day Years Used Date Smoking Tobacco: Every Day Cigarettes 1 53.7 Started: [birth year]/12/1970 Passive Smoke Exposure: Current Smokeless Tobacco: Never Alcohol Use Standard Drinks/Week Comments Yes 2 (1 standard drink = 0.6 oz pur e alcohol) Drinks 'rarely' Depression Answer Date Recorded Patient Health Questionnaire-9 Score 11 04/25/2022 Housing Stability Answer Date Recorded What is your housing situation today? I have lopez ferguson 02/25/[address] you li ve. Do you have problems with any of the following? None of the above 02/25/2023 Food Insecurity Answer Date Recorded Within the past 12 months, y ou worried that your food would run out before you got money to buy more: Never True 02/25/2023 Within the past 12 months,th e food you bought just didn't last and you didn't have enough money to get more: Never True Transportation Answer Date Recorded In the past 12 months, has l ack of transportation kept you from medical appts, meetings, work or from getting things needed for daily living? No 02/25/2023 Utilities Answer Date Recorded In the past 12 months, has t he electric, gas, oil or water company threatened to shut off services in your home? Yes 02/17/2023 Depression Answer Date Recorded Patient Health Questionnaire-2 [...] Description 02/03/2025 10:30 AM EDT Medication Management [address] [address] Lily Schmidt, PankajD [address] [place] [address] 02/16/2025 10:30 AM EDT Clinical Support [address] [address] Jahaira Smalls, RN documented as of this encounter Visit Diagnoses Diagnosis Essential hypertension Unspecified essential hypertension documented in this encounter Additional Health Concerns Assessment Noted Time PHQ-9 Depression Total Score: 11 022 10:11 AM EST documented as of this encounter Care Teams Tree Thinner Relationship Specialty Start Date End Date Name, MD Chet [address] [place] [address] PCP - General Family Medicine 02/09/18 documented as of this encounter
--- OUTSIDE RECORDS SUMMARY | 2025-01-26 19:30 | XMS_ITS | Encounter Summary ---
Author Organization [employer] Address [address] [facility] 7t [place] [address] Care Team Providers Care Mba Intern Name Role Phone Name, Chet VALDEZ Primary Care Provider [phone] Reason for Visit * Reason Comments Med Change Request Encounter Details Date Type Department Care Team ([facility] Contact Info) Description 01/21/2025 Refill [facility] MEDICINE [address] [place], [place] [phone] Name, MD Chet 230 [place], [place] [phone] Social History Tobacco Use Types Packs/Day Years [...] encounter Miscellaneous Notes * Telephone Encounter - Chet Escalera MD - 01/21/2025 1:39 PM EDT He needs to pick this up at the [facility] pharmacy documented in this encounter Plan of Treatment Upcoming Encounters Date Type Department Care Team (Late st Contact Info) Description 02/03/2025 10:30 AM EDT Medication Management [facility] MEDICINE [address] [place] [address] Lily Schmidt, PharmD [address] [place] [address] 02/16/2025 10:30 AM EDT Clinical Support [facility] MED[facility] [address] [place] [address] Jahaira Smalls RN documented as of this encounter Visit Diagnoses Not on filedocumented in this encounter Additional Health Concerns Assessment Noted Time PHQ-9 Depression Total Score: 0 09/19/19 24 11:32 AM EDT documented as of this encounter Care Teams Mba Intern Relationship Specialty Start Date End Date Chet Escalera MD [address] [place] [address] PCP - General Family Medicine 02/09/18 documented as of this encounter
--- OUTSIDE RECORDS SUMMARY | 2025-01-26 19:30 | XMS_ITS | Encounter Summary ---
Author Organization [employer] Address [address] [facility] 7t [place] [address] Care Team Providers Care Leaf Blender Name Role Phone Name, Chet VALDEZ Primary Care Provider [phone] Encounter Details Date Type Department Care Team ([facility] st Contact Info) Description 03/24/2023 Telephone [facility] MEDICINE [address] [place], [place] [phone] Name, MD Chet [address] [place], [place] [phone] Social History Tobacco Use Types Packs/Day Years [...] Description 02/03/2025 10:30 AM EDT Medication Management [address] [address] Lily Schmidt PharmD [address] [place] [address] 02/16/2025 10:30 AM EDT Clinical Support [address] [address] Jahaira Smalls, NEGAR documented as of this encounter Visit Diagnoses Not on filedocumented in this encounter Additional Health Concerns Assessment Noted Time PHQ-9 Depression Total Score: 11 022 10:11 AM EST documented as of this encounter Care Teams Leaf Blender Relationship Specialty Start Date End Date Name, MD Chet [address] [place] [address] PCP - General Family Medicine 02/09/18 documented as of this encounter
--- OUTSIDE RECORDS SUMMARY | 2025-01-26 19:30 | XMS_ITS | Encounter Summary ---
Author Organization [employer] Address [address] [place] [address] 7t [place] [address] Care Team Providers Care Home Supervisor Name Role Phone Name, Chet VALDEZ Primary Care Provider [phone] Reason for Visit * Reason Onset Date Comments Med Refill 01/21/2025 Encounter Details Date Type Department Care Team (Late st Contact Info) Description 01/21/2025 Telephone [facility] MEDICINE [address] [place], [place] [phone] Name, MD Chet [address] [place], [place] [phone] Med Refill Social History Tobacco Use Types [...] encounter Miscellaneous Notes * Telephone Encounter - [place] - 01/21/2025 12:26 PM EDT TC from pt requesting medication refill. Medications needing refill: Viagra 50 MG tablet To be sent to: [facility] - [address] documented in this encounter Plan of Treatment Upcoming Encounters Date Type Department Care Team ([facility] st Contact Info) Description 02/03/2025 10:30 AM EDT Medication Management [address] [address] Lily Schmidt, PharmD [address] [place] [address] 02/16/2025 10:30 AM EDT Clinical Support [address] [address] Jahaira Smalls RN documented as of this encounter Visit Diagnoses Not on filedocumented in this encounter Additional Health Concerns Assessment Noted Time PHQ-9 Depression Total Score: 0 09/19/19 24 11:32 AM EDT documented as of this encounter Care Teams Home Supervisor Relationship Specialty Start Date End Date Name, MD Chet [address] [place] [address] PCP - General Family Medicine 02/09/18 documented as of this encounter
== END 2025-01-26 18:24 | disposition home or self-care (01) ==
LOC: HO.HHCLNP 18:23
PROVIDERS: Visit Provider Internal Medicine Geriatric Medicine
DX: Z79.891 Long term (current) use of opiate analgesic (principal)
CPT/HCPCS: 36415; 80353

== ENCOUNTER 2025-02-21 11:27 | Outpatient (REF) | payer MEDICARE, SELFPAY ==
--- OUTSIDE RECORDS SUMMARY | 2025-02-16 11:00 | XMS_ITS | Encounter Summary ---
Author Organization [employer] Address [address] [place] [address] 7t [place] [address] Care Team Providers Care Substitute Teacher Name Role Phone Name, Chet VALDEZ Primary Care Provider [phone] Lily Schmidt PharmD Unavailable [phone] Reason for Visit * Reason Comments Follow-up Encounter Details Date Type Department Care Team ([facility] Contact Info) Description 02/16/2025 11:00 AM EDT Office Visit [facility] MEDICINE [address] [place] [phone] Name, MD Chet [address] [place] [address] Caregiver stress (Primary Dx); Encounter for drug screening Social History Tobacco Use Types Packs/Day Years Used Date Smoking Tobacco: Every Day Cigarettes 1 53.8 Started: 05/12/1970 Passive Smoke Exposure: Current Smokeless [...] the past 12 months, has t he Tribe, [employer], oil or water company threatened to shut [...] AM EDT documented as of this encounter Last Filed Vital Signs Vital Sign Reading Time Taken Comments Blood Pressure 138/86 02/16/2025 11:48 AM EDT Pulse 86 02/16/2025 11:48 AM EDT Temperature 36.1 C (97 F) 02/16/2025 11:48 AM EDT Respiratory Rate 21 02/16/2025 11:48 AM EDT Oxygen Saturation - - Inhaled Oxygen Concentration - - Weight 87.5 kg (193 lb) 02/16/2025 11:48 AM EDT Height 170.2 cm (5' 7 ) 02/16/2025 11:48 AM EDT Body Mass Index 30.23 02/16/2025 11:48 AM EDT documented in this encounter Functional Status * Over the last 2 weeks, how often have you been bothered by any of the following problems? Question Answer Date of Assessment Author Feeling nervous, anxious, or on edge 3 12/2024 11:50 AM EDT Gurvinder Mcneal MA Not being able to stop or co ntrol worrying 0 02/16/2025 11:50 AM EDT Gurvinder Mcneal M A Worrying too much about diff erent things 3 02/16/2025 11:50 AM EDT Gurvinder Mcneal M A Trouble relaxing 1 02/16/2025 11:50 AM EDT Gurvinder Mcneal MA Being so restless that it is hard to sit still 0 02/16/2025 11:50 AM EDT Gurvinder Mcneal M A Becoming easily annoyed or irritable 1 12/2024 11:50 AM EDT Gurvinder Mcneal MA Feeling afraid as if somethi ng awful might happen 1 02/16/2025 11:50 AM EDT Gurvinder Mcneal M A ALICE-7 Total Score 9 02/16/2025 11:50 AM EDT Gurvinder Mcneal MA documented as of this encounter Progress Notes * Chet Escalera MD - 02/16/2025 11:00 AM EDT Subjective Patient ID: Sedrick Tolbert is a 69 y.o. male who presents for Follow-up. Patient comes for follow-up visit. He has personal history of chronic severe low back pain with radiation to the legs. He has a previous history of lumbar spine surgeries. He is on contract for treatment of pain with oxycodone. I wanted to see him because recent urine tox screen came back positive for cocaine. The patient denies the use of inhaled or smoked cocaine. He explains to me that he smokes marijuana to help with chronic pain and he has been buying prerolled marijuana cigarettes from a friend of her . He used to buy from a marijuana dispensary but stopped because of the high cost after his medical marijuana card . He has been stressed since he is taking care of his motherthat has dementia. He had the flu vaccine already. Review of Systems Constitutional: Negative for chills, fatigue and fever. HENT: Negative for sore throat. Respiratory: Negative for cough, chest tightness and shortness of breath. Cardiovascular: Negative for chest pain, palpitations and leg swelling. Gastrointestinal: Negative for abdominal pain and blood in stool. Musculoskeletal: Positive for back pain. Psychiatric/Behavioral: The patient is nervous/anxious. Objective Vitals: 02/16/25 1148 BP: 138/86 BP Location: Left arm Patient Position: Sitting BP Cuff Size: Adult Pulse: 86 Resp: 21 Temp: 97 ??F (36.1 ??C) TempSrc: Oral Weight: 193 lb (87.5 kg) Height: 5' 7 (1.702 m) Physical Exam Constitutional: General: He is not in acute distress. Appearance: He is not toxic-appearing. Cardiovascular: Rate and Rhythm: Normal rate and regular rhythm. Pulmonary: Effort: Pulmonary effort is normal. No respiratory distress. Assessment/Plan Diagnoses and all orders for this visit: Caregiver stress Comments: I believe he is honest when he says he does not use cocaine, he never had abnormal tox screens before. I recommend that only buys marijuana from a medical marijuana dispensary. I recommend that he stop using prerolled marijuana cigarettes he has at home I recommended to go to the lab for repeat urine tox screen Encounter for drug screening - Drug Monitoring, Panel 1, Screen, Urine; Future Future Appointments Date Time Provider Department Center 02/28/2025 11:30 AM Jahaira Smalls RN MEDICINE [facility] 03/09/2025 10:30 AM Lily Schmidt PharmD MEDICINE [facility] documented in this encounter Plan of Treatment Upcoming Encounters Date Type Department Care Team (Late st Contact Info) Description 02/28/2025 11:30 AM EDT Clinical Support [address] [address] Jahaira Smalls RN 03/09/2025 10:30 AM EDT Telemedicine [address] [address] Lily Schmidt PharmD [address] [place] [address] 04/26/2025 1:45 PM EST Office Visit [address] [address] Chet Escalera MD [address] [place] [address] Scheduled Orders Name Type Priority Associated Diagnoses Orde r Schedule Drug Monitoring, Panel 1, Screen, Urine Lab Routine Encounter for drug screening Expected: 02/16/2025 (Approximate), Expires: 02/16/2026 documented as of this encounter Visit Diagnoses Diagnosis Caregiver stress- Primary Encounter for drug screening documented in this encounter Additional Health Concerns Assessment Noted Time PHQ-9 Depression Total Score: 0 09/19/19 24 11:32 AM EDT documented as of this encounter Care Teams Substitute Teacher Relationship Specialty Start Date End Date Name, MD Chet [address] [place] [address] PCP - General Family Medicine 02/09/18 Lily Schmidt, Jody [address] [place] [address] Pharmacist Pharmacy 02/03/25 documented as of this encounter
--- OUTSIDE RECORDS SUMMARY | 2025-02-21 11:29 | XMS_ITS | Encounter Summary ---
Author Organization [employer] Address [address] [place] [address] 7t [place] [address] Care Team Providers Care Lead Database Administrator Name Role Phone Name, Chet VALDEZ Primary Care Provider [phone] Lily Schmidt PharmD Unavailable [phone] Reason for Visit * Reason Comments Med Refill Encounter Details Date Type Department Care Team (Late Contact Info) Description 07/09/2022 Refill [facility] MED[facility]INE [address] [place], [place] [phone] Name, MD Chet [address] [place] [address] Social History Tobacco Use Types Packs/Day Years Used Date Smoking Tobacco: Every Day Cigarettes 1 53.8 Started: 05/12/1971 Smokeless Tobacco: Never Alcohol Use [...] Department Care Team (Late Contact Info) Description 02/28/2025 11:30 AM EDT Clinical Support [address] [address] Jahaira Smalls, RN 03/09/2025 10:30 AM EDT Telemedicine [address] [address] Lily Schmidt PharmD [address] [place] [address] 04/26/2025 1:45 PM EST Office Visit [address] [address] Name, MD Chet [address] [place] [address] documented as of this encounter Visit Diagnoses Not on filedocumented in this encounter Additional Health Concerns Assessment Noted Time PHQ-9 Depression Total Score: 11 04/25/2 022 10:11 AM EST documented as of this encounter Care Teams Lead Database Administrator Relationship Specialty Start Date End Date Name, MD Chet [address] [place] [address] PCP - General Family Medicine 02/09/18 Lily Schmidt PharmD [address] [place] [address] Pharmacist Pharmacy 02/03/25 documented as of this encounter
--- OUTSIDE RECORDS SUMMARY | 2025-02-21 11:29 | XMS_ITS | Encounter Summary ---
Author Organization [employer] Address [address] [facility] 7t [place] [address] Care Team Providers Care Flakeboard Line Tender Name Role Phone Name, Chet VALDEZ Primary Care Provider [phone] Lily Schmidt PharmD Unavailable [phone] Encounter Details Date Type Department Care Team ([facility] st Contact Info) Description 04/21/2024 Telephone [facility] [address] [place], [place] [phone] Name, MD Chet [address] [place] [address] Social History Tobacco Use Types Packs/Day Years [...] Description 02/28/2025 11:30 AM EDT Clinical Support [address] [address] Jahaira Smalls RN 03/09/2025 10:30 AM EDT Telemedicine [address] [address] Lily Schmidt PharmD [address] [place] [address] 04/26/2025 1:45 PM EST Office Visit [address] [address] Name, MD Chet [address] [place] [address] documented as of this encounter Visit Diagnoses Not on filedocumented in this encounter Additional Health Concerns Assessment Noted Time PHQ-9 Depression Total Score: 0 09/19/19 24 11:32 AM EDT documented as of this encounter Care Teams Flakeboard Line Tender Relationship Specialty Start Date End Date Name, MD Chet [address] [place] [address] PCP - General Family Medicine 02/09/18 Lily Schmidt PharmD [address] [place] [address] Pharmacist Pharmacy 02/03/25 documented as of this encounter
--- OUTSIDE RECORDS SUMMARY | 2025-02-21 11:29 | XMS_ITS | Clinical Summary ---
Author Organization [facility]] lin Address [address] [address] [place] [address] Care Team Providers Care Tin Pot Operator Name Role Phone Pcp, Ruma Primary Care Provider [phone] Allergies Active Allergy Reactions Criticality Noted Date [...] MORNING 5 Active blood pressure test kit-large ([employer] BP Monitor) kit Use once a day [...] (42) tablet Take by mouth 4 Active Social History Tobacco Use Types Packs/Day Years [...] Adults 18 yrs or above (or HM Modifier)([facility]) 1974 Hepatitis C Virus Infection in Adolescents and Adults: Screening (or Modifier) ([facility]) 1974 [facility] Screening Reminder: Ceci ually for all adults ([facility]) 1974 Colorectal Cancer Screening 45 -75 Yrs (or HM Modifier) 2001 Colorectal Cancer: FLEXIBLE SIGMOIDOSCOPY Screening every 5 yrs 2001 Colorectal Cancer: Fecal Immunochemical Test (FIT) Annually [facility] 2001 Colorectal Cancer: High-sens itivity gFOBT Screening Annually [facility] 2001 Colorectal Cancer: Stool Col oguard Screening every 3 yrs 2001 Colorectal Cancer:CT Colonog candelaria Screening every 5 yrs 2001 Abdominal Aortic Aneurysm Screening: Men Aged 65 to 75 Years Who Have Smoked (or Modifier) ([facility]) 2021 Flu Vaccination: Ages 65+: Y early High Dose Recommended (or Modifier)([facility]) 12/10/2024 02/24/2023, 12/29/2019, 02/16/2019, Additional history exists COVID-19 Vaccine Screening: Initial Series and Booster Status ([facility]) ( season) 2025 08/23/2020, 07/21/2020 Lung Cancer: Screening Annua lly in adults aged 50 to 80 years (or HM Modifiers)([facility]) 03/03/2025 03/03/2024 Tobacco Smoking Cessation: i n Adults excluding Women: Behavioral and Pharmacotherapy Interventions ([facility]) 11/10/2025 11/10/2024, 11/10/2024 DTaP/Tdap/Td Vaccines ([facility]) (2 - Td or Tdap) 03/19/2029 03/19/2019, 05/12/2009 Zoster/Shingles Vaccine Seri es Screening: Adults aged 18+ yrs (or HM Modifiers)([facility]) Completed 04/18/2020, 04/17/2020, 01/28/2020 RSV Vaccines Completed 03/05/2023 Pneumococcal Vaccination Scr eening: Patients 50+ yrs of age ([facility]) Completed 05/01/2023, , 01/07/2017 [employer] [place] [id number] [facility] Care Teams Tin Pot Operator Relationship Specialty Start Date End Date Pcp, No PCP - General Family Medicine 11/10/24
--- OUTSIDE RECORDS SUMMARY | 2025-02-21 11:29 | XMS_ITS | Clinical Summary ---
Author Organization [facility] Address [address] [place] [address] Care Team Providers Care Special Events Assistant Name Role Phone Name, Chet VALDEZ Primary Care Provider [phone] Social History Tobacco Use Types Packs/Day Years [...] 2006 Zoster Vaccines (1 of 2) 2006 Depression Screening 05/12/2024 COVID-19 Vaccine (1 - 2023-2 5 season) 2025 Influenza Vaccine (#1) 2025 2, 02/19/2011, 02/27/2010 [...] age to complete this topic Care Teams Special Events Assistant Relationship Specialty Start Date End Date Name, MD Chet [address] [place], [place] PCP - General 02/27/10
--- OUTSIDE RECORDS SUMMARY | 2025-02-21 11:29 | XMS_ITS | Clinical Summary ---
Author Organization [facility] Address [address] [place] [address] Care Team Providers Care Fire Prevention Chief Name Role Phone Name, Chet VALDEZ Primary Care Provider [phone] Social History Tobacco Use Types Packs/Day Years [...] age to complete this topic Care Teams Fire Prevention Chief Relationship Specialty Start Date End Date Name, MD Chet [address] [facility] [place] [address] PCP - General Internal Medicine 07/30/18
--- OUTSIDE RECORDS SUMMARY | 2025-02-21 11:29 | XMS_ITS | Encounter Summary ---
Author Organization [employer] Address [address] [facility] 7t [place] [address] Care Team Providers Care Dermatologist And Dermatopathologist Name Role Phone Name, Chet VALDEZ Primary Care Provider [phone] Lily Schmidt PharmD Unavailable [phone] Reason for Visit * Reason Comments Med Refill Encounter Details Date Type Department Care Team ([facility] st Contact Info) Description 04/27/2024 Refill [facility] MED[facility]INE [address] [place], [place] [phone] Name, MD Chet [address] [place] [address] Heartburn Social History Tobacco Use Types Packs/Day [...] Description 02/28/2025 11:30 AM EDT Clinical Support [address] [address] Jahaira Smalls RN 03/09/2025 10:30 AM EDT Telemedicine [address] [address] Lily Schmidt PharmD [address] [place] [address] 04/26/2025 1:45 PM EST Office Visit [address] [address] Name, MD Chet [address] [place] [address] documented as of this encounter Visit Diagnoses Diagnosis Heartburn documented in this encounter Additional Health Concerns Assessment Noted Time PHQ-9 Depression Total Score: 0 09/19/19 24 11:32 AM EDT documented as of this encounter Care Teams Dermatologist And Dermatopathologist Relationship Specialty Start Date End Date NameChet MD [address] [place] [address] PCP - General Family Medicine 02/09/18 Lily Schmidt, PharmD [address] [place] [address] Pharmacist Pharmacy 02/03/25 documented as of this encounter
--- OUTSIDE RECORDS SUMMARY | 2025-02-21 11:29 | XMS_ITS | Encounter Summary ---
Author Organization [employer] Address [address] [facility] 7t [place] [address] Care Team Providers Care Certified Health Education Specialist Name Role Phone Name, Chet VALDEZ Primary Care Provider [phone] Lily Schmidt PharmD Unavailable [phone] Encounter Details Date Type Department Care Team (Latest Contact Info) Description 02/16/2025 Travel Social History Tobacco Use Types Packs/Day [...] AM EDT documented as of this encounter Functional Status * Over the [...] [place] documented as of this encounter Plan of Treatment Upcoming Encounters Date Type Department Care Team (Late st Contact Info) Description 02/28/2025 11:30 AM EDT Clinical Support [address] [address] SerinaJahaira RN 03/09/2025 10:30 AM EDT Telemedicine [facility] [place] [address] Lily Schmidt PharmD [facility] [place] [address] 04/26/2025 1:45 PM EST Office Visit [facility] [place] [address] Name, MD [facility]t [email or web address] [place] [address] documented as of this encounter Visit Diagnoses Not on filedocumented in this encounter Additional Health Concerns Assessment Noted Time PHQ-9 Depression Total Score: 0 09/19/19 24 11:32 AM EDT documented as of this encounter Care Teams Certified Health Education Specialist Relationship Specialty Start Date End Date Name, MD Chet [facility] [place] [address] PCP - General Family Medicine 02/09/18 Lily Schmidt PharmD [facility] [place] [address] Pharmacist Pharmacy 02/03/25 documented as of this encounter
--- OUTSIDE RECORDS SUMMARY | 2025-02-21 11:29 | XMS_ITS | Encounter Summary ---
Author Organization [employer] Address [address] [place] [address] 7t [place] [address] Care Team Providers Care Car Wash Attendant Name Role Phone Name, Chet VALDEZ Primary Care Provider [phone] Lily Schmidt PharmD Unavailable [phone] Reason for Visit * Reason Onset Date Comments Med Refill 02/21/2025 Encounter Details Date Type Department Care Team (Late st Contact Info) Description 02/21/2025 Refill [facility] MEDICINE [address] [place], [place] [phone] Name, MD Chet [address] [place] [address] Chronic pain syndrome Social History Tobacco Use [...] encounter Miscellaneous Notes * Telephone Encounter - Yeny Cuenca - 02/21/2025 8:36 AM EDT TC from pt requesting medication refill. Medications needing refill : oxyCODONE (Roxicodone) 15 MG immediate release tablet To be sent to: [facility]/pharmacy #[id number] [place], [place] - [address] documented in this encounter Plan of Treatment Upcoming Encounters Date Type Department Care Team (Late st Contact Info) Description 02/28/2025 11:30 AM EDT Clinical Support [facility]INE [address] [place] [address] Jahaira Smalls, RN 03/09/2025 10:30 AM EDT Telemedicine [facility] MED[facility]INE [address] [place] [address] Lily Schmidt, PankajD [address] [place] [address] 04/26/2025 1:45 PM EST Office Visit [facility] [address] [place] [address] Name, MD Chet [address] [place] [address] documented as of this encounter Visit Diagnoses Diagnosis Chronic pain syndrome documented in this encounter Additional Health Concerns Assessment Noted Time PHQ-9 Depression Total Score: 0 09/19/19 24 11:32 AM EDT documented as of this encounter Care Teams Car Wash Attendant Relationship Specialty Start Date End Date Name, MD Chet [address] [place] [address] PCP - General Family Medicine 02/09/18 Lily Schmidt, PankajD [address] [place] [address] Pharmacist Pharmacy 02/03/25 documented as of this encounter
--- OUTSIDE RECORDS SUMMARY | 2025-02-21 11:29 | XMS_ITS | Clinical Summary ---
Author Organization [employer] Address [address] [facility] 7t [place] [address] Care Team Providers Care Field Evidence Technician Name Role Phone Name, Chet VALDEZ Primary Care Provider [phone] Lily Schmidt PharmD Unavailable [phone] Allergies Active Allergy Reactions Criticality Noted Date Comments Niacin 08/07/2022 Other Reaction(s): Muscle cramps Medications * This document contains information received from the source organization and may not represent a complete record from that organization. albuterol 108 (90 Base) MCG/ACT inhaler Inhale 2 puffs every 4 (four) hours. 08/18/19 21 Active Blood Pressure kit Use once a day 1 kit 12/05/19 23 Active atorvastatin (Lipitor) 40 MG tabletIndicatio ns:Essential [...] MEAL 90 capsule 1 11/23/19 25 Active sildenafil (Viagra) 50 MG tablet TAKE 1 TABLET BY MOUTH EVERY DAY 1 HOUR BEFORE SEXUAL RELATIONS NEEDED 10 tablet 2 01/22/20 25 Active varenicline (Chantix) 1 MG tabletIndicatio ns:Tobacco dependence Take 1 tablet (1 mg) by mouth 2 times daily. Take with full glass of water. 56 tablet 4 02/04/20 25 Active varenicline (Chantix) 0.5 MG tabletIndicatio ns:Tobacco dependence Take 1 tablet by mouth daily for 3 days, then take 1 tablet by mouth twice daily for 4 days, then begin increased dose on day 8 to the end of therapy 11 tablet 02/04/20 25 Active Winchester Fatty Acids-Vitamins (Winchester-3 Gummies) chewable tablet Chew 1 Piece in the morning. OTC. Active pregabalin (Lyrica) 150 MG capsuleIndicati ons:Other chronic pain TAKE 1 CAPSULE BY MOUTH THREE TIMES DAILY 90 capsule 02/22/20 25 Active oxyCODONE (Roxicodone) 15 MG immediate release tabletIndicatio ns:Chronic pain syndrome Take 1 tablet (15 mg) by mouth every 6 (six) hours for 28 days. Do not start before February 25, 2025. 112 tablet 02/26/20 25 025 Active buPROPion (Zyban) 150 MG 12 hr tabletIndicatio ns:Tobacco user Take 1 tablet (150 mg) by mouth in the morning and at bedtime. Do not crush, chew, or split. 60 tablet 2 04/25/20 22 025 Discontinued(Me d list cleanup (will not trigger notification to Pharmacy)) neomycin-bacitr acin-polymyxin (Neosporin) 5-400-5000 ointmentIndicat ions:Staphyloco ccal arthritis of left elbow (CMS/HCC) (HCC) Apply topically 2 times daily. 30 g 05/10/20 22 025 Discontinued(Me d list cleanup (will not trigger notification to Pharmacy)) Varenicline Tartrate, Starter, (Chantix Starting Month ) 0.5 MG X 11 & 1 MG X 42 tablet therapy pack Take 0.5 mg by mouth Once daily for 3 days, THEN 0.5 mg 2 times daily for 4 days, THEN 1 mg 2 times daily for 21 days. 53 each 06/12/19 24 025 Discontinued(Me d list cleanup (will not trigger notification to Pharmacy)) omega-3 acid ethyl esters (Lovaza) 1 g capsule Take 1 capsule (1 g) by mouth 2 times daily. 60 capsule 11 06/13/19 24 025 Discontinued(Me d list cleanup (will not trigger notification to Pharmacy)) oxyCODONE (Roxicodone) 15 MG immediate release tabletIndicatio ns:Chronic pain syndrome Take 1 tablet (15 mg) by mouth every 6 (six) hours for 28 days. Do not start before December 31, 2024. 112 tablet 01/01/20 25 025 Discontinued(Re order (will not trigger notification to Pharmacy)) pregabalin (Lyrica) 150 MG capsuleIndicati ons:Other chronic pain TAKE 1 CAPSULE BY MOUTH THREE TIMES DAILY 90 capsule 01/22/20 025 Discontinued(Re order (will not trigger notification to Pharmacy)) oxyCODONE (Roxicodone) 15 MG immediate release tabletIndicatio ns:Chronic pain syndrome Take 1 tablet (15 mg) by mouth every 6 (six) hours for 28 days. Do not start before January 28, 2025. 112 tablet 01/29/20 025 Discontinued(Re order (will not trigger notification to Pharmacy)) Active Problems Problem Noted Date Diagnosed Date Tobacco dependence 02/03/2025 Long-term current use of opiate analgesic 2024 [...] Failed back syndrome 12/04/2022 Fatty liver 12/04/2022 Hiatal hernia 12/04/2022 Knee pain 12/04/2022 Lumbar disc herniation 12/04/2022 Lumbar spondylosis 12/04/2022 Neck pain 12/04/2022 Nevus of vermilion border of lower lip Nocturia 12/04/2022 Obesity (BMI 30-39.9) 12/04/2022 Pain in joint of right shoulder 12/04/2022 Rotator cuff sprain 12/04/2022 Senile hyperkeratosis 12/04/2022 Vasculitis 12/04/2022 Chronic pain 12/04/2022 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 Initially seen at [facility] on 05/02/222 after a fall that [...] agreable with plan, will bring him to [facility] ER. I have sent a prescription for Bactrim DS 1 tab po BID x 14 days, and I have placed a referral for [facility], since he will probably be released from the Hospital with instruction to follow up with Ortho. Follow up with PCP after that Tobacco user 04/25/2022 Erectile dysfunction 04/25/2022 Hip pain 03/26/2022 Bilateral hearing loss 09/10/2018 Hypertension 05/13/2018 Avascular necrosis of hip (CMS/HCC) 03/24/2018 Overview (12/04/2022): 2019 X-ray showed IMPRESSION: There is patchy sclerosis involving the femoral heads bilaterally concerning for the presence of avascular necrosis that can be further assessed with MRI. Followed at [facility], recommended observation and yearly X-ray but no surgery yet Chronic low back pain 02/09/2018 Decreased hearing 02/09/2018 Heartburn 02/09/2018 Hypertriglyceridemia, essential 02/09/2018 Osteoarthritis of left hip 02/09/2018 Encounters * This document contains information received from the source organization and may not represent a complete record from that organization. Date Type Department Care Team Description 02/21/2025 Refill [facility] [address] [place] [address] Chet Escalera MD Chronic pain syndrome 02/21/2025 Refill [facility] [address] [place] [address] Chet Escalera MD Other chronic pain 02/16/2025 11:00 AM EDT Office Visit [facility] [address] [place] [address] Chet Escalera MD Caregiver stress (Primary Dx); Encounter for drug screening 02/16/2025 Travel 02/15/2025 Telephone [facility] [address] [place] [address] Katerina Moreno MA chart prep 02/09/2025 Patient Outreach [facility] [address] [place], [place] [phone] Chet Escalera MD Pre-visit Planning ([facility] unable to reach [facility] ) 02/03/2025 Travel 02/01/2025 Telephone [facility] [address] [place] [address] Jahaira Smalls, NEGAR PCP appt 01/31/2025 Telephone [facility] [address] [place] [address] Jahaira Smalls RN UTOX Pos LESLY 01/26/2025 2:00 PM EDT Clinical Support [facility] [address] [place] [address] Jahaira Smalls RN Long-term current use of opiate analgesic (Primary Dx) 01/26/2025 Telephone [facility] [address] [place] [address] Jahaira Smalls RN UTOX abnormal 01/26/2025 Travel 01/24/2025 Refill [facility] [address] [place] [address] Chet Escalera MD Chronic pain syndrome 01/21/2025 Refill [facility] [address] [place] [address] Chet Escalera MD 01/21/2025 Telephone [facility] [address] [place] [address] Chet Escalera MD Med Refill 01/21/2025 Telephone [facility] [address] [place] [address] Chet Escalera MD Med Refill 01/21/2025 Refill [facility] [address] [place] [address] Chet Escalera MD Other chronic pain 01/11/2025 Telephone [facility] [address] [place] [address] Chet Escalera MD Appointment Request 01/11/2025 Telephone [facility] [place] [place] [address] Chet Escalera MD Appointment Request 12/31/2024 Telephone [facility] [address] [place] [address] Katerina Moreno MA oct recalls 12/24/2024 Refill [facility] [address] [place] [address] Chet Escalera MD Chronic pain syndrome 12/24/2024 Refill [facility] [address] [place], [place] [phone] Name, MD Chet Other chronic pain 11/29/2024 Refill [facility] [address] [place] [address] Name, MD Chet Chronic pain syndrome from Last 3 Months Immunizations Immunization Administration Dates Next Due Influenza High-dose Quadriva lent Preservative Free 02/24/2023 Influenza Injectable Quadriv alant Preservative Free IIV4 MDCK 12/29/2019 Influenza Quadrivalent Adjuvanted 01/25/2022 Influenza injectable quadriv alent IIV4 with preservative 02/09/2018 Influenza injectable quadriv alent preservative free 02/16/2019,12/11/2016,01/12/2016,01/14 Influenza, High Dose Seasona l, Preservative Free 01/27/2025,02/12/2024 Influenza, IIV3, injectable 02/09/2021,0 12/11/2016,01/12/2016,01/13,02/10/2014,02/09/2014,03/31/2012 ,02/19/2011,02/27/2010 Influenza, [...] 21 02/16/2025 11:48 AM EDT Oxygen Saturation 97% 11/02/2024 1:36 PM EDT Inhaled Oxygen Concentration - - Weight 87.5 kg (193 lb) 02/16/2025 11:48 AM EDT Height 170.2 cm (5' 7 ) 02/16/2025 11:48 AM EDT Body Mass Index 30.23 02/16/2025 11:48 AM EDT Plan of Treatment Upcoming Encounters Date Type Department Care Team (Late st Contact Info) Description 02/28/2025 11:30 AM EDT Clinical Support [address] [address] Jahaira Smalls, NEGAR 03/09/2025 10:30 AM EDT Telemedicine [address] [address] Lily Schmidt, PharmD [address] [place] [address] 04/26/2025 1:45 PM EST Office Visit [address] [address] Name, MD Chet [address] [place] [address] Health Maintenance Due Date Last Done Comments CT Colonography 1955 FIT DNA/Cologuard 1955 FIT 1955 FOBT 1955 Sigmoidoscopy 1955 Hepatitis C Screening 1974 Hepatitis A Vaccines (1 of 2 - Risk 2-dose series) 09/15/1975 Hepatitis B Vaccines (1 of 3 - Risk 3-dose series) 2016 Depression Screening 09/18/2024 09/19/2023, 09/19/19 24 Lung Cancer Screening 03/03/2025 03/03/2024, 023 Alcohol/Substance Use Screening 11/02/2025 11/02/2024 SDOH Screening 11/02/2025 11/02/2024 Tobacco Screening 02/16/2026 02/16/2025 Colonoscopy 10/22/2028 10/22/2018 Colorectal Cancer Screening 10/22/2028 DTaP/Tdap/Td Vaccines (2 - Td or Tdap) 03/19/2029 03/19/2019, 05/12/2009 Lipid Panel 11/15/2029 11/15/2024, 05/2023, 08/27/2022, Additional history exists Zoster Vaccines Completed 04/18/2020, 11/2019, 01/28/2020 RSV Patients and Patients Aged 60 years or older Completed 03/05/2023 Pneumococcal Vaccine: 50+ Years Completed 05/01/2023, 04/25/2022, 01/07/2017 COVID-19 Vaccine Completed 01/27/2025, 07/2023, 02/24/2023, Additional history exists Influenza Vaccine Completed 01/27/2025, , 02/24/2023, Additional history exists HIB Vaccines Aged Out No longer eligi [...] EDT Long-term current use of opiate analgesic DRUG MONITOR, COCAINE METAB, QN, URINE Routine 01/26/2025 2:00 PM EDT Long-term current use of opiate [...] / Unknown 01/26/2025 2:08 PM EDT us Chet Name POINT OF CARE TEST ENTER/EDIT OR DERABLES Final Result * Drug Monitoring, Cocaine Metabolite, Quantitative, Urine (01/26/2025 2:00 PM EDT) Benzoylecgonine 209 [facility] Comment:CUTOFF 100 NG/MLPERF ORMING SITE:[facility]cluster [facility], [address] [place] [phone] Paper Latcher: ASHLEE RIVAS MD, CLIA:[id number] Cocaine Comments SEE NOTE [facility] Comment:This drug testing is for medical treatment only. Analysiswas performed as non-forensic testing and these resultsshould be used only by healthcare providers to renderdiagnosis or treatment, or to monitor progress of medicalconditions.Cocaine Notes:Benzoylecgonine detected is consistent with the use of thedrug Cocaine.LDT Notes:Confirmation tests were developed and their analyticalperformance characteristics have been determined by [employer]. It has not been cleared or approved by the FDA.This assay has been validated pursuant to the CLIAregulations and is used for clinical purposes.Healthcare Providers needing Interpretation assistance,please contact us at [phone] ( ) M-F,8am to 10pm EST Urine (Urine, Random) 01/26/2025 2:00 PM EDT 01/26/2025 6:24 PM EDT Chet Escalera MD LAB URINE ORDERABLES Final Resul t Performing Organization Address [facility] Co de Phone Number [facility] [address] [place] [address] [phone] * (ABNORMAL) Lipid Panel, Standard (11/15/2024 11:48 AM EDT) Triglycerides 288(H) <150 mg/dL [facility] Comment:Desirable Triglyceri de: less than 150 mg/dLBorderline High Triglyceride 150-199 mg/dLHigh Triglyceride: 200-499 mg/dLVery High Triglyceride: greater than or equal to 5OO mg/dL Cholesterol 161 <200 mg/dL [facility] Comment:Desirable Cholestero l: less than 200 mg/dLBorderline High Cholesterol: 200-239 mg/dLHigh Cholesterol: greater than 239 mg/dL LDL Cholesterol Calculated 66 <100 mg/dL [facility] Comment:Desirable LDL: less than 100 mg/dLNear Optimal/Above Optimal LDL: 110- 129 mg/dLBorderline High LDL: 130-159 mg/dLHigh LDL: 160-189 mg/dLVery High LDL: greater than or equal to 190 mg/dL HDL Cholesterol 38(L) >40 mg/dL [facility] Comment:Desirable HDL: great er than 40 mg/dL Note: This HDL assay may give artificially low results in patients with liver disease. Blood Venous blood specimen / Unknown 11/15/2024 11:48 AM EDT 11/15/2024 1:32 PM EDT us Chet Escalera MD LAB BLOOD ORDERABLES Final Resul t Performing Organization Address [facility]/ZIP Co de Phone Number [facility] [address] [place] [address] [phone] * CT Lung Screening Low dose (03/03/2024 11:07 AM EDT) Anatomical Region Laterality Modality Lung Computed Tomogra phy 03/03/2024 11:0 7 AM EDT Narrative 04/21/2024 1:[address] [address] [address] Scan Report Signed Patient: Sedrick Tolbert MR#: [id number] : 1955 Acct:[id number] Age/Sex: 68 / M ADM Date: 03/03/24 Loc: .CT Attending Dr: Rianna Negron PA-C Ordering Physician: Rianna Negron PA-C Date of Service: 03/03/24 Procedure(s): CT lung screening Accession Number(s): [id number] cc: Rianna Negron PA-C; Name,Chet VALDEZ EXAMINATION: [...] for CT CHEST LOW DOSE CANCER SCREENING ([id number]) can be placed. Electronically signed by: Beau Ulrich MD 04/21/2024 01:27 PM [facility] Dictated By: Beau Ulrich MD Signed By: <Electronically signed by Beau Ulrich MD in OV> 04/21/24 1327 DD/ 1107 TD/TT: 03/03/24 1115 Foiling Machine Adjuster: Procedure Note Donotuseinterpreter, Image - 04/21/[address] [place] [address] [address] Scan Report Signed Patient: Sedrick Tolbert RMR#: [id number] : 1955cct:[id number] Age/Sex: 68 / MADM Date: 03/03/24 Loc: HO.CT Attending Dr: Rianna Negron PA-C Ordering Physician: Rianna Negron PA-C Date of Service: 03/03/24 Procedure(s): CT lung screening Accession Number(s): [id number] cc: Rianna Negron PA-C; Name,Chet VALDEZ EXAMINATION: [...] for CT CHEST LOW DOSE CANCER SCREENING ([id number]) can be placed. Electronically signed by: Beau Ulrich MD 04/21/2024 01:27 PM [facility] Dictated By: Beau Ulrich MD Signed By: <Electronically signed by Beau Ulrich MD in OV> 04/21/24 1327 DD/ 1107 TD/TT: 03/03/24 1115 Foiling Machine Adjuster: TYREE [facility] External Provider IM CT PROCEDURES Edited Result - Final * Hm Colonoscopy (10/22/2018) Colonoscopy Normal Normal Kristyn Sun HEALTH MAINTENANCE Final Result from Last 3 Months or Most Recently Relevant to Health Maintenance Insurance [place], [place] [employer] MEDICARE REPLACEMENT Care Teams Field Evidence Technician Relationship Specialty Start Date End Date Name, MD Chet [address] [place] [address] PCP - General Family Medicine 02/09/18 Lily Schmidt PharmD [address] [place] [address] Pharmacist Pharmacy 02/03/25
--- OUTSIDE RECORDS SUMMARY | 2025-02-21 11:29 | XMS_ITS | Encounter Summary ---
Author Organization [employer] Address [address] [place] [address] 7t [place] [address] Care Team Providers Care Accounting Officer Name Role Phone Name, Chet VALDEZ Primary Care Provider [phone] Lily Schmidt PharmD Unavailable [phone] Reason for Visit * Reason Onset Date Comments Med Refill 02/21/2025 Encounter Details Date Type Department Care Team (Late st Contact Info) Description 02/21/2025 Refill [facility] [address] [place], [place] [phone] Name, MD Chet [address] [place] [address] Other chronic pain Social History Tobacco Use [...] encounter Miscellaneous Notes * Telephone Encounter - Lilian Roth LPN - 02/21/2025 8:39 AM EDT WELDING INSPECTOR checked on 02/21/25. Last seen 02/16/25. * Telephone Encounter - Yeny Cuenca - 02/21/2025 8:32 AM EDT TC from pt requesting medication refill. Medications needing refill : - pregabalin (Lyrica) 150 MG capsule To be sent to: - [facility]/pharmacy #[id number] - [place] - [address] documented in this encounter Plan of Treatment Upcoming Encounters Date Type Department Care Team (Late st Contact Info) Description 02/28/2025 11:30 AM EDT Clinical Support [address] [phone] Jahaira Smalls, RN 03/09/2025 10:30 AM EDT Telemedicine [facility] [address] [place] [address] Lily Schmidt PharmD [address] [place] [address] 04/26/2025 1:45 PM EST Office Visit [facility] [address] [place] [address] Name, MD Chet [address] [place] [address] documented as of this encounter Visit Diagnoses Diagnosis Other chronic pain documented in this encounter Additional Health Concerns Assessment Noted Time PHQ-9 Depression Total Score: 0 09/19/19 24 11:32 AM EDT documented as of this encounter Care Teams Accounting Officer Relationship Specialty Start Date End Date Name, MD Chet [address] [place] [address] PCP - General Family Medicine 02/09/18 Lily Schmidt PharmD [address] [place] [address] Pharmacist Pharmacy 02/03/25 documented as of this encounter
--- OUTSIDE RECORDS SUMMARY | 2025-02-21 11:29 | XMS_ITS | Encounter Summary ---
Author Organization [employer] Address [address] [facility] 7t [place] [address] Care Team Providers Care Machine Splitter Name Role Phone Name, Chet VALDEZ Primary Care Provider [phone] Lily Schmidt PharmD Unavailable [phone] Reason for Visit * Reason Comments Med Refill Encounter Details Date Type Department Care Team ([facility] st Contact Info) Description 07/29/2023 Refill [facility] [address] [place], [place] [phone] Name, MD Chet [address] [place] [address] Essential hypertension Social History Tobacco Use Types [...] Description 02/28/2025 11:30 AM EDT Clinical Support [address] [address] Jahaira Smalls RN 03/09/2025 10:30 AM EDT Telemedicine [address] [address] Lily Schmidt PharmD [address] [place] [address] 04/26/2025 1:45 PM EST Office Visit [address] [address] Name, MD Chet [address] [place] [address] documented as of this encounter Visit Diagnoses Diagnosis Essential hypertension Unspecified essential hypertension documented in this encounter Additional Health Concerns Assessment Noted Time PHQ-9 Depression Total Score: 11 022 10:11 AM EST documented as of this encounter Care Teams Machine Splitter Relationship Specialty Start Date End Date Name, MD Chet [address] [place] [address] PCP - General Family Medicine 02/09/18 Lily Schmidt PharmD [address] [place] [address] Pharmacist Pharmacy 02/03/25 documented as of this encounter
--- OUTSIDE RECORDS SUMMARY | 2025-02-21 11:29 | XMS_ITS | Encounter Summary ---
Author Organization [employer] Address [address] [place] [address] 7t [place] [address] Care Team Providers Care Education And Development Manager Name Role Phone Name, Chet VALDEZ Primary Care Provider [phone] Lily Schmidt PharmD Unavailable Encounter Details Date Type Department Care Team ([facility] Contact Info) Description 04/08/2022 Abstract [facility] [address] [place] [phone] Provider, MD Williams Social History Tobacco Use [...] Description 02/28/2025 11:30 AM EDT Clinical Support [address] [phone] Jahaira Smalls, NEGAR 03/09/2025 10:30 AM EDT Telemedicine [facility] [address] [place] [address] Lily Schmidt, PharmD [address] [place] [address] 04/26/2025 1:45 PM EST Office Visit [facility] [address] [place] [address] Name, MD Chet [address] [place] [address] documented as of this encounter Visit Diagnoses Not on filedocumented in this encounter Care Teams Education And Development Manager Relationship Specialty Start Date End Date Name, MD Chet [address] [place] [address] PCP - General Family Medicine 02/09/18 Lily Schmidt PharmD [address] [place] [address] Pharmacist Pharmacy 02/03/25 documented as of this encounter
--- OUTSIDE RECORDS SUMMARY | 2025-02-21 11:29 | XMS_ITS | Encounter Summary ---
Author Organization [employer] Address [address] [facility] 7t [place] [address] Care Team Providers Care Drivability Technician Name Role Phone Name, Chet VALDEZ Primary Care Provider [phone] Lily Schmidt PharmD Unavailable [phone] Encounter Details Date Type Department Care Team ([facility] st Contact Info) Description 03/24/2023 Telephone [facility] [address] [place], [place] [phone] Name, MD Chet [address] [place] [address] Social History Tobacco Use Types Packs/Day Years [...] Description 02/28/2025 11:30 AM EDT Clinical Support [facility] [address] [place] [address] Jahaira Smalls, RN 03/09/2025 10:30 AM EDT Telemedicine [address] [address] Lily Schmidt PharmD [address] [place] [address] 04/26/2025 1:45 PM EST Office Visit [facility] [address] [place] [address] Name, MD Chet [address] [place] [address] documented as of this encounter Visit Diagnoses Not on filedocumented in this encounter Additional Health Concerns Assessment Noted Time PHQ-9 Depression Total Score: 11 022 10:11 AM EST documented as of this encounter Care Teams Drivability Technician Relationship Specialty Start Date End Date Name, MD Chet [address] [place] [address] PCP - General Family Medicine 02/09/18 Lily Schmidt PharmD [address] [place] [address] Pharmacist Pharmacy 02/03/25 documented as of this encounter
--- OUTSIDE RECORDS SUMMARY | 2025-02-21 11:30 | XMS_ITS | Encounter Summary ---
Author Organization [employer] Address [address] [place] [address] [address] [place] [address] Care Team Providers Care Medical Librarian Name Role Phone Name, Chet VALDEZ Primary Care Provider [phone] Lily Schmidt PharmD Unavailable [phone] Reason for Visit * Reason Onset Date Comments Med Refill 01/21/2025 Encounter Details Date Type Department Care Team (Late st Contact Info) Description 01/21/2025 Telephone [facility] [address], [place] [phone] Name, MD Chet [address] [place] [address] Med Refill Social History Tobacco Use Types [...] immediate release tablet To be sent to: [facility]/pharmacy #[id number] Rich RUIZ [place] - [address] documented in this encounter Plan of Treatment Upcoming Encounters Date Type Department Care Team (Late st Contact Info) Description 02/28/2025 11:30 AM EDT Clinical Support [facility] [address] [place] [phone] Jahaira Smalls RN 03/09/2025 10:30 AM EDT Telemedicine [facility] [address] [place] [phone] Lily Schmidt PharmD [address] [place] [phone] 04/26/2025 1:45 PM EST Office Visit [facility] [address] [place] [phone] Name, MD Chet [address] [place] [phone] documented as of this encounter Visit Diagnoses Not on filedocumented in this encounter Additional Health Concerns Assessment Noted Time PHQ-9 Depression Total Score: 0 09/19/19 24 11:32 AM EDT documented as of this encounter Care Teams Medical Librarian Relationship Specialty Start Date End Date Name, MD Chet [address] [place] [id number] PCP - General Family Medicine 02/09/18 Lily Schmidt PharmD [address] [place] [phone] Pharmacist Pharmacy 02/03/25 documented as of this encounter
--- OUTSIDE RECORDS SUMMARY | 2025-02-21 11:30 | XMS_ITS | Encounter Summary ---
Author Organization [employer] Address [address] [place] [address] 7[address] [place] [address] Care Team Providers Care Tailing Machine Operator Name Role Phone Name, Chet VALDEZ Primary Care Provider [phone] Lily Schmidt PharmD Unavailable [phone] Reason for Visit * Reason Onset Date Comments Med Refill 01/21/2025 Encounter Details Date Type Department Care Team (Late st Contact Info) Description 01/21/2025 Telephone [facility] [address] [place], [place] [phone] Name, MD Chet [address] [place] [address] Med Refill Social History Tobacco Use Types [...] 50 MG tablet To be sent to: [facility] - [place], [place] - [address] [place] [address] documented in this encounter Plan of Treatment Upcoming Encounters Date Type Department Care Team (Late st Contact Info) Description 02/28/2025 11:30 AM EDT Clinical Support [facility] [address] [place] [address] Jahaira Smalls, RN 03/09/2025 10:30 AM EDT Telemedicine [address] [address] Lily Schmidt, PharmD [address] [place] [phone] 04/26/2025 1:45 PM EST Office Visit [address] [phone] Name, MD Chet [address] [place] [address] documented as of this encounter Visit Diagnoses Not on filedocumented in this encounter Additional Health Concerns Assessment Noted Time PHQ-9 Depression Total Score: 0 09/19/19 24 11:32 AM EDT documented as of this encounter Care Teams Tailing Machine Operator Relationship Specialty Start Date End Date Name, MD Chet [address] [place] [phone] PCP - General Family Medicine 02/09/18 Lily Schmidt PharmD [address] [place] [phone] Pharmacist Pharmacy 02/03/25 documented as of this encounter
[2025-02-21 13:47] LABS: Cannabinoid Screen Urine POSITIVE (Not Detect)
== END 2025-02-21 11:28 | disposition home or self-care (01) ==
LOC: HO.HHCL 11:27
PROVIDERS: PCP Internal Medicine Geriatric Medicine; Visit Provider Internal Medicine Geriatric Medicine
DX: Z51.81 Encounter for therapeutic drug level monitoring (principal)
CPT/HCPCS: 80307

== ENCOUNTER 2025-04-20 10:22 | Outpatient (REF) | payer MEDICARE, SELFPAY ==
--- NOTE | ~2025-04-20 | CT_ITS ---
EXAMINATION: CT LOW-DOSE SCREENING CHEST WITHOUT CONTRAST CLINICAL INFORMATION: F17.210 - Nicotine dependence, cigarettes, uncomplicated COMPARISON: Chest CT on March 03, 2024 TECHNIQUE: Multidetector volumetric CT imaging of the chest is performed on a Siemens SOMATOM Definition scanner without contrast using low dose technique. Additional 2D coronal and sagittal reformatted images and axial 3D maximum intensity projection (MIP) images are generated on the CT workstation. Thin 0.6 mm slices are not available for review. This CT examination was performed using dose optimization techniques as appropriate, variously including the following: *Automated exposure control *Adjustment of mA and/or kV according to patient size (this includes techniques or standardized protocols for targeted exams where dose is matched to indication/reason for exam; i.e. extremities or head) *Use of iterative reconstruction technique CTDIvol: 1.75 mGy. FINDINGS: LUNGS: Central airways are patent. Minimal bronchial wall thickening. Mild emphysema. No focal consolidation. PULMONARY NODULES: Tiny 0.1 cm in nodule in the right middle lobe (5:101/158) is unchanged for 2023. No suspicious pulmonary nodules. PLEURA: No pneumothorax or pleural effusion. MEDIASTINUM: No thyroid nodules. Heart is normal in size. No pericardial effusion. Mild coronary artery calcifications. Scattered calcifications along the thoracic aorta and great vessels. LYMPH NODES: No adenopathy CHEST WALL/AXILLA: Unremarkable. UPPER ABDOMEN: Vascular calcifications. Improvement of the previously seen findings of hepatic steatosis. OSSEOUS STRUCTURES: No acute or suspicious findings. CT/CT lung screening IMPRESSION: No new or enlarging pulmonary nodules. ASSESSMENT: 1. Lung-RADS Category 2: Benign appearance or behavior of nodules. 2. Lung-RADS Category S: Negative. There are no clinically significant or potentially clinically significant findings not related to the lungs requiring urgent additional evaluation. RECOMMENDATION: Continued routine annual low-dose CT lung screening in 1 year is recommended. An order for CT CHEST LOW DOSE CANCER SCREENING ([id number]) can be placed. Electronically signed by: Gustavo Boggs MD 04/20/2025 11:35 AM [facility]
== END 2025-04-20 10:23 | disposition home or self-care (01) ==
LOC: HO.CT 10:22
PROVIDERS: PCP Internal Medicine Geriatric Medicine; Visit Provider Physician Assistant Medical
DX: F17.210 Nicotine dependence, cigarettes, uncomplicated (principal)
CPT/HCPCS: 71271

== ENCOUNTER → 2025-04-20 10:24 | Outpatient (BNV) | payer MEDICARE, SELFPAY | PROVIDERS: PCP Internal Medicine Geriatric Medicine; Visit Provider Radiology Body Imaging | DX: Z12.2 Encounter for screening for malignant neoplasm of respiratory organs (principal); Z87.891 Personal history of nicotine dependence | CPT/HCPCS: 71271 ==